=== PATIENT | male | born 1980 | race Caucasian/White ===

== ENCOUNTER 2018-09-25 09:45 | Outpatient (CLI) | payer OTHER, SELFPAY ==
[2017-07-24 07:50] VITALS: BMI 26.0
[2018-09-25 12:38] LABS: Cholesterol 187 mg/dL (200); High Density Lipoprotein 60 mg/dL; Triglycerides 109 mg/dL; Very Low Density Lipoprotein 22 mg/dL (5-40)
== END 2018-09-25 10:45 ==
LOC: LAB 09:49
PROVIDERS: Family Provider Family Medicine; PCP Family Medicine; Referring Provider Family Medicine; Visit Provider Family Medicine
DX: E78.5 Hyperlipidemia, unspecified (principal)
CPT/HCPCS: 36415; 80061

== ENCOUNTER → 2018-10-08 12:51 | Outpatient (CLI) | payer OTHER, SELFPAY ==
--- NOTE | 2018-10-08 12:53 | ECHOD_ITS ---
Reason For Study: Murmur Procedure This was a 2D Doppler, Color Flow transthoracic echocardiogram. Exam performed in department. Left Ventricle Normal LV size. Left ventricular systolic function is normal. The estimated ejection fraction is 60 %. Normal diastology for age. No regional wall motion abnormalities noted. Right Ventricle Normal RV size. Normal systolic function. Atria Normal left atrium. Normal right atrium. Mitral Valve Bileaflet diffuse mitral valve thickening. Moderate (2+) eccentric mitral valve insufficiency. Tricuspid Valve Normal tricuspid valve. Mild (1+) tricuspid valve insufficiency. Pulmonary artery systolic pressure is 26 mmHg. Aortic Valve Normal aortic valve. Pulmonic Valve Normal pulmonic valve. Great Vessels Normal aortic root. The pulmonary artery is normal size. Normal inferior vena cava. Pericardium/Pleural No pericardial effusion. MMode/2D Measurements & Calculations LVIDd: 5.9 cm IVSd: 0.79 cm Ao root diam: 3.1 cm LVIDs: 3.8 cm LVPWd: 0.86 cm RVDd: 3.2 cm FS: 36.8 % LAV(MOD-bp): 50.0 ml LVAd ap4: 25.0 cm2 SV(MOD-sp4): 38.8 ml LAV(MOD-bp) Indexed: 26.2 ml/m2 EDV(MOD-sp4): 64.1 ml LAV(MOD-sp2): 54.2 ml EDV(sp4-el): 67.8 ml LAV(MOD-sp4): 41.2 ml LVAs ap4: 14.1 cm2 ESV(MOD-sp4): 25.3 ml ESV(sp4-el): 26.2 ml EF(MOD-sp4): 60.5 % EF(sp4-el): 61.4 % SV(sp4-el): 41.7 ml LA A4 area: 15.9 cm2 LA dimension(2D): 3.8 cm RA A4 area: 12.0 cm2 Doppler Measurements & Calculations MV E max jordan: 106.7 cm/sec Lat Peak E' Jordan: 15.8 cm/sec Med Peak E' Jordan: 13.3 cm/sec MV A max jordan: 52.4 cm/sec E/E' lat: 6.7 E/E' med: 8.0 MV E/A: 2.0 Ao V2 max: 127.6 cm/sec LV V1 max: 124.2 cm/sec PA V2 max: 86.1 cm/sec Ao max P.5 mmHg LV V1 max P.2 mmHg Ao V2 mean: 92.4 cm/sec Ao mean P.8 mmHg Ao V2 VTI: 23.1 cm TR max jordan: 234.8 cm/sec TR max P.0 mmHg Interpretation Summary Normal LV size. Left ventricular systolic function is normal. The estimated ejection fraction is 60 %. Normal diastology for age. Moderate (2+) eccentric mitral valve insufficiency. Bileaflet diffuse mitral valve thickening. Ordering Physician: Agus Skelton Referring Physician: Agus Skelton Performed By: Merary Jennings, COLIN, RVT
--- OUTSIDE RECORDS SUMMARY | 2019-01-10 03:35 | XMS RPT_ITS ---
:1980 Author Organization [facility] Care Team Providers Name Role Phone Agus Skelton Attending Unavailable Agus Skelton Referring Unavailable Agus Skelton Primary Care Unavailable Avel Esquivel Attending Unavailable Agus Skelton Referring Unavailable Agus Skelton Attending Unavailable Agus Skelton Referring Unavailable Agus Skelton Primary Care Unavailable ASSESSMENT, HEALTH RISK Attending Unavailable ASSESSMENT, HEALTH RISK Referring Unavailable Agus Skelton Primary Care Unavailable PROBLEMS PROBLEMS DATE TYPE CONDITION / CODE ATTENDING STATUS SOURCE 10/30/2018 Unknown R01.1 - Cardiac Sierra, Avel Active James murmur, Community unspecified / Hospital R01.1(ICD-10) Repository 10/22/2018 Unknown E78.5 - Agus Skelton Active [place] Hyperlipidemia, Community unspecified / Hospital E78.5(ICD-10) Repository PROCEDURES PROCEDURES No Procedure Records FoundRESULTS RESULTS ECHOCARDIOGRAM COMPLETE Observed: 10/08/2018 Status: F Source: JAMES 4:42 PM [facility] REPOSITORY [facility] Cardiovascular Services [address] [place] [address] Echo Complete 10/08/18 1259 MR#: [id number] Acct: [id number] Name: SUNNY CHEN Rep #: [id number] : 1980 38 From: Avel Esquivel MD Attending Dr: Agus Skelton MD Status: REG CLI Ordering Dr: Agus Skelton MD Date: 10/08/18 Location: [facility] Sex: M C Admitted: Reason For Study: Murmur Procedure This was a 2D Doppler, Color Flow transthoracic echocardiogram. Exam performed in department. Left Ventricle Normal LV size. Left ventricular systolic function is normal. The estimated ejection fraction is 60 %. Normal diastology for age. No regional wall motion abnormalities noted. Right Ventricle Normal RV size. Normal systolic function. Atria Normal left atrium. Normal right atrium. Mitral Valve Bileaflet diffuse mitral valve thickening. Moderate (2+) eccentric mitral valve insufficiency. Tricuspid Valve Normal tricuspid valve. Mild (1+) tricuspid valve insufficiency. Pulmonary artery systolic pressure is 26 mmHg. Aortic Valve Normal aortic valve. Pulmonic Valve Normal pulmonic valve. Great Vessels Normal aortic root. The pulmonary artery is normal size. Normal inferior vena cava. Pericardium/Pleural No pericardial effusion. MMode/2D Measurements AND Calculations LVIDd: 5.9 cm IVSd: 0.79 cm Ao root diam: 3.1 cm LVIDs: 3.8 cm LVPWd: 0.86 cm RVDd: 3.2 cm FS: 36.8 % LAV(MOD-bp): 50.0 ml LVAd ap4: 25.0 cm2 SV(MOD-sp4): 38.8 ml LAV(MOD-bp) Indexed: 26.2 ml/m2 EDV(MOD-sp4): 64.1 ml LAV(MOD-sp2): 54.2 ml EDV(sp4-el): 67.8 ml LAV(MOD-sp4): 41.2 ml LVAs ap4: 14.1 cm2 ESV(MOD-sp4): 25.3 ml ESV(sp4-el): 26.2 ml EF(MOD-sp4): 60.5 % EF(sp4-el): 61.4 % SV(sp4-el): 41.7 ml LA A4 area: 15.9 cm2 LA dimension(2D): 3.8 cm RA A4 area: 12.0 cm2 Doppler Measurements AND Calculations MV E max jordan: 106.7 cm/sec Lat Peak E' Jordan: 15.8 cm/sec Med Peak E' Jordan: 13.3 cm/sec MV A max jordan: 52.4 cm/sec E/E' lat: 6.7 E/E' med: 8.0 MV E/A: 2.0 Ao V2 max: 127.6 cm/sec LV V1 max: 124.2 cm/sec PA V2 max: 86.1 cm/sec Ao max P.5 mmHg LV V1 max P.2 mmHg Ao V2 mean: 92.4 cm/sec Ao mean P.8 mmHg Ao V2 VTI: 23.1 cm TR max jordan: 234.8 cm/sec TR max P.0 mmHg Interpretation Summary Normal LV size. Left ventricular systolic function is normal. The estimated ejection fraction is 60 %. Normal diastology for age. Moderate (2+) eccentric mitral valve insufficiency. Bileaflet diffuse mitral valve thickening. Ordering Physician: Agus Skelton Referring Physician: Agus Skelton Performed By: Merary Jennings, RDLEX, RVT 10/08/181641 Date Avel Esquivel MD CC: Agus Skelton MD Date Dictated: 10/08/18 1259 Date Transcribed: 10/08/181641 Industry Consultant: Signed LIPID PROFILE Collected: 09/25/2018 Status: F Source: JAMES 12:04 PM [facility] REPOSITORY TYPE CODE TESTS RESULT OUT OF RANGE REFERENCE UNITS LAB L501.4900 200 mg/dL Normal CHOL 187 Result Comment: <200 mg/dL Desirable 200-240 mg/dL Borderline >240 mg/dL High Risk LAB L501.5000 mg/dL Normal TRIG 109 Result Comment: The drugs N-Acetylcysteine and Metamizole may falsely depress this assay. Serum Triglycerides Reference Interval Normal <150 mg/dL Borderline high 150 - 199 mg/dL High 200 - 499 mg/dL Very High > or = 500 mg/dL LAB L501.6400 mg/dL Normal HDL 60 Result Comment: The drugs N-Acetylcysteine and Metamizole may falsely depress this assay. Reference Range HDL <40 mg/dL Low HDL Cholesterol HDL >or= 60 mg/dL High HDL Cholesterol LAB L501.6500 0-130 mg/dL Normal LDL 105 LAB L501.6600 5-40 mg/dL Normal VLDL 22 Performed By: #### L500.4100 #### [facility] [address] [place], [place], [address] NICOTINE URINE DRUG Collected: 06/22/2018 Status: F Source: JAMES SCREEN 4:30 PM [facility] REPOSITORY TYPE CODE TESTS RESULT OUT OF RANGE REFERENCE UNITS LAB L505.6250 TO BE Normal CONFIRMED Result Comment: CONFIRMATORY TESTING FOR ALL POSITIVE URINE DRUG SCREEN RESULTS WILL ONLY BE SENT OUT UPON PHYSICIAN ORDER. The results of Urine Drug Screen methods provide only preliminary analytical test results. A more specific alternate chemical method must be used in order to obtain a confirmed analytical result. Gas chromatography/mass spectrometery (GC/MS) is the preferred confirmatory method. Clinical consideration and professional judgement should be applied to any drug of abuse test result, particularly when preliminary positive results are used. LAB L505.6270 <200 ng/mL Normal COT DRG Negative SCREEN Result Comment: Cotinine is the first-stage metabolite of Nicotine. Performed By: #### L505.6240 #### [facility] [address] [place], [address] CBC, EMPLOYEE Collected: 06/22/2018 Status: F Source: JAMES 4:30 PM [facility] REPOSITORY TYPE CODE TESTS RESULT OUT OF RANGE REFERENCE UNITS LAB L100.1000 4.4-11.0 K/mm3 Normal WBC 7.3 LAB L100.1200 4.6-6.2 M/mm3 Normal RBC 4.78 LAB L100.1300 13.0-16.5 g/dl Normal HGB 15.3 LAB L100.1400 40-54 % Normal HCT 43.1 LAB L100.1500 80-94 fL Normal MCV 90.2 LAB L100.1600 27.0-32.0 pg Normal MCH 32.0 LAB L100.1700 32-36 g/gl Normal MCHC 35.5 LAB L100.1810 11.6-14.6 % Normal RDW CV 13.4 LAB L100.1820 35.1-43.9 fl High RDW SD 44.0 LAB L100.1900 150-450 K/mm3 Normal PLT 353 LAB L100.2000 6.2-12.0 fl Normal MPV 9.0 LAB L100.2110 47-70 % Normal NEUT% 57.9 LAB L100.2210 19-41 % Normal LY% 28.8 LAB L100.2310 0-10 % Normal MONO% 9.8 LAB L100.2410 0-5 % Normal EO% 2.6 LAB L100.2510 0-1 % Normal BASO% 0.6 LAB L100.2620 2.0-7.7 X10 3/uL Normal Absolute Neut 4.2 LAB L100.2720 0.83-4.51 X10 3/ul Normal Absolute Lymph 2.09 Performed By: #### L100.0200 #### [facility] [address] [place] [address]. [place], [place], [address] EMPLOYEE PROFILE Collected: 06/22/2018 Status: F Source: CERRILL[place] 4:30 PM [facility] REPOSITORY TYPE CODE TESTS RESULT OUT OF RANGE REFERENCE UNITS LAB L501.0100 74-106 mg/dL Normal GLU 88 Result Comment: Please note revised GLUCOSE reference range effective 2017. LAB L501.1000 7-18 mg/dL Normal BUN 13 LAB L501.1100 0.70-1.30 mg/dL Normal CREAT,SERUM 1.27 Result Comment: The validity of the calculated GFR AND GFRAA in patients over 70 years has not been determined. Clinical correlation is essential. LAB L501.1110 >60 mL/min Normal EST GFR 67 Result Comment: Non- GFR Calc LAB L501.1115 >60 mL/min Normal EST GFR - AA 81 Result Comment: GFR Calc LAB L501.1300 10-20 RATIO Normal BUN/CRE 10.2 LAB L501.1400 3.5-7.2 mg/dL Normal URIC 6.5 Result Comment: The drugs N-Acetylcysteine and Metamizole may falsely depress this assay. LAB L501.1500 6.4-8.2 g/dL Normal T PROT 7.8 LAB L501.1800 3.2-5.0 g/dL Normal ALB 4.1 LAB L501.1950 2.2-4.2 g/dL Normal GLOB 3.7 LAB L501.2000 0.9-2.4 RATIO Normal A/G 1.1 LAB L501.2200 8.5-10.1 mg/dL Normal CA 8.8 LAB L501.2300 2.5-4.9 mg/dL Normal PHOS 2.8 LAB L501.4100 15-37 U/L Normal AST 26 LAB L501.4305 45-117 U/L Normal ALK P 73 LAB L501.4405 16-61 U/L Normal ALT 45 LAB L501.4600 0.20-1.00 mg/dL High T BILI 1.30 LAB L501.4700 0.00-0.30 mg/dL Normal D BILI 0.24 LAB L501.4900 200 mg/dL High CHOL 237 Result Comment: <200 mg/dL Desirable 200-240 mg/dL Borderline >240 mg/dL High Risk LAB L501.5000 mg/dL Normal TRIG 136 Result Comment: The drugs N-Acetylcysteine and Metamizole may falsely depress this assay. Serum Triglycerides Reference Interval Normal <150 mg/dL Borderline high 150 - 199 mg/dL High 200 - 499 mg/dL Very High > or = 500 mg/dL LAB L501.5300 136-145 mmol/L Normal NA 137 LAB L501.5600 3.5-5.1 mmol/L Normal K 3.9 LAB L501.5900 98-107 mmol/L Normal CL 101 LAB L501.6100 21.0-32.0 mmol/L Normal CO2 27.0 LAB L501.6200 5-15 Normal 9 GAP LAB L501.6400 mg/dL Normal HDL 55 Result Comment: The drugs N-Acetylcysteine and Metamizole may falsely depress this assay. Reference Range HDL <40 mg/dL Low HDL Cholesterol HDL >or= 60 mg/dL High HDL Cholesterol LAB L501.6475 Normal CHOL:HDL 4.30 LAB L501.6500 0-130 mg/dL High LDL 155 LAB L501.6600 5-40 mg/dL Normal VLDL 27 LAB L504.2610 87-241 U/L Normal LDH 227 Performed By: #### L500.2900 #### [facility] [address] [place], [address] URINALYSIS, EMPLOYEE Collected: 06/22/2018 Status: F Source: CERRI[place] 4:30 PM [facility] REPOSITORY TYPE CODE TESTS RESULT OUT OF RANGE REFERENCE UNITS LAB L400.3000 Yellow COLOR Normal Yellow LAB L400.3050 Clear Normal CLARITY Clear LAB L400.3200 Normal mg/dl Normal GLUCOSE, UR Normal LAB L400.3300 Negative mg/dL Normal BILIRUBIN URINE Negative LAB L400.3400 Negative mg/dl Normal KETONE UR Negative LAB L400.3465 1.002-1.030 Normal SP.GR. DIPSTX 1.010 LAB L400.3550 5.0 - 8.0 pH UR Normal 6.5 LAB L400.3600 Negative mg/dl PROT Normal DIPSTX Negative LAB L400.3700 Normal mg/dl Normal UROBILI Normal LAB L400.3750 Negative Normal NITRITE UR Negative LAB L400.3780 Negative /ul Normal OCCULT BLOOD-UR Negative LAB L400.3800 Negative /ul LEUK Normal ESTERASE Negative Performed By: #### L400.0100 #### [facility] [address] [place], [address] ALLERGIES ALLERGIES DATE TYPE / CODE NAME / CODE REACTION SEVERITY SOURCE 07/18/2017 Drug No Known Unknown [facility] Allergy/4160 Allergies/F00 Hospital [address]402(SNOMED [id number](RXNOR Repository CT) M) ENCOUNTERS ENCOUNTERS ADMIT/DISCHARGE ACCOUNT ADMITTING ENCOUNTER LOCATION SOURCE NUMBER CLASS 10/08/2018 [id number] Ambulatory BMSBuilding:Marcie Santoyo 3 [facility] Repository 10/08/2018 [id number] Ambulatory [place] 5 [facility] ing:[facility] Repository 09/25/2018/ [id number] Ambulatory James [place] 8 5 [facility] ing:LAB Repository 06/22/2018 [id number] Ambulatory James [place] 5 [facility] ing:EMPH Repository PAYERS PAYERS ENCOUNTER GUARANTOR PAYER SUBSCRIBER SOURCE 10/08/2018 SUNNY Powell Primary Insurance:[employer] SUNNY Powell James [id number] [facility] J[facility]NSONDOB: [address] [id number] [address]Dpj: Number: Repository [id number] (HP) Date:[id number] [address] [address], [place] [address]QX: CHECK WEBSITE 10/08/2018 Secondary NOT GIVENUNK James Insurance:SELF PAY [facility] Number: Effective Repository Date:2018-10-08 10/08/2018 SUNNY Powell Primary Insurance:[employer] SUNNY [id number] OP3Nvoice [facility] JOHNSONDOB: [address] [id number] [address]Xfq: Number: Repository [id number] (HP) Date:[id number] [address] [address]OW[place], [place] [address]MF: CHECK WEBSITE 10/08/2018 Secondary NOT GIVENUNK [place] Insurance:SELF PAY [facility] Number: Effective Repository Date:2018-09-27 09/25/2018 SUNNY Powell Primary Insurance:[employer] SUNNY [id number] [facility] JOHNSONDOB: [address] [id number] [facility] [address]Cpy: Number: Repository [id number] (HP) Date:[id number] [address] [address], [place] [address]YF: CHECK WEBSITE 09/25/2018 Secondary NOT GIVENUNK James Insurance:SELF PAY [facility] Number: Effective Repository Date:2018-09-25 06/22/2018 Sunny Becker NOT SILIVNO [id number] Tr Insurance:SELF PAY [address] [address]Yup: Number: [facility] Repository Date:2018-06-22 ()
== END ==
PROVIDERS: Family Provider Family Medicine; PCP Family Medicine; Referring Provider Family Medicine; Visit Provider Family Medicine
DX: R01.1 Cardiac murmur, unspecified (principal)
CPT/HCPCS: 93306

== ENCOUNTER → 2019-02-27 22:56 | Outpatient (CLI) | payer OTHER, SELFPAY ==
[2019-02-06 14:37] VITALS: BMI 26.6
== END ==
PROVIDERS: Family Provider Family Medicine; PCP Family Medicine; Referring Provider Family Medicine; Visit Provider Family Medicine
DX: G47.33 Obstructive sleep apnea (adult) (pediatric) (principal)
CPT/HCPCS: 95811

== ENCOUNTER → 2019-09-03 09:21 | Outpatient (CLI) | payer OTHER, SELFPAY ==
[2019-02-06 14:37] VITALS: BMI 26.6
[2019-09-03 10:41] LABS: AST(SGOT) 23 U/L (15-37); Alanine Aminotransfer ALT/SGPT 38 U/L (16-61); Albumin, Serum 4.1 g/dL (3.2-5.0); Alkaline Phosphatase 68 U/L (45-117); Bilirubin, Direct 0.26 mg/dL (0.00-0.30); Cholesterol 204 mg/dL (200); Globulin 3.4 g/dL (2.2-4.2); High Density Lipoprotein 56 mg/dL; Protein, Total 7.5 g/dL (6.4-8.2); Triglycerides 95 mg/dL; Very Low Density Lipoprotein 19 mg/dL (5-40)
== END ==
PROVIDERS: Family Provider Family Medicine; PCP Family Medicine; Referring Provider Family Medicine; Visit Provider Family Medicine
DX: E78.5 Hyperlipidemia, unspecified (principal)
CPT/HCPCS: 36415; 80061; 80076

== ENCOUNTER 2020-07-20 18:17 | Outpatient (RCR) | payer OTHER, SELFPAY ==
[2020-02-03 14:32] VITALS: BMI 26.6
== END 2020-07-22 23:59 ==
LOC: EMPH 18:17
PROVIDERS: PCP Family Medicine; Visit Provider Family Medicine Geriatric Medicine
DX: Z11.59 Encounter for screening for other viral diseases (principal)
CPT/HCPCS: 87635; U0003

== ENCOUNTER 2020-08-20 08:27 | Outpatient (RCR) | payer OTHER, SELFPAY ==
[2020-02-03 14:32] VITALS: BMI 26.6
== END 2020-08-22 23:59 ==
LOC: EMPH 08:27
PROVIDERS: PCP Family Medicine; Visit Provider Family Medicine Geriatric Medicine
DX: Z03.818 Encounter for observation for suspected exposure to other biological agents ruled out (principal)
CPT/HCPCS: 87426

== ENCOUNTER 2020-09-15 11:46 | Outpatient (RCR) | payer OTHER, SELFPAY ==
[2020-02-03 14:32] VITALS: BMI 26.6
[2020-09-03 23:51] LABS: Probe Check PASS; Specimen Processing Control PASS
== END 2020-09-21 23:59 ==
LOC: EMPH 11:46
PROVIDERS: PCP Family Medicine; Visit Provider Family Medicine Geriatric Medicine
DX: Z03.818 Encounter for observation for suspected exposure to other biological agents ruled out (principal)
CPT/HCPCS: 87426; 87635; U0002

== ENCOUNTER 2020-10-21 14:06 | Outpatient (RCR) | payer OTHER, SELFPAY ==
[2020-02-03 14:32] VITALS: BMI 26.6
== END 2020-10-22 23:59 ==
LOC: EMPH 14:06
PROVIDERS: PCP Family Medicine; Referring Provider Family Medicine Geriatric Medicine; Visit Provider Family Medicine Geriatric Medicine
DX: Z03.818 Encounter for observation for suspected exposure to other biological agents ruled out (principal)
CPT/HCPCS: 87426

== ENCOUNTER 2020-11-04 13:02 | Outpatient (RCR) | payer OTHER, SELFPAY ==
[2020-02-03 14:32] VITALS: BMI 26.6
== END 2020-11-22 23:59 ==
LOC: EMPH 13:02
PROVIDERS: PCP Family Medicine; Referring Provider Family Medicine Geriatric Medicine; Visit Provider Family Medicine Geriatric Medicine
DX: Z03.818 Encounter for observation for suspected exposure to other biological agents ruled out (principal)
CPT/HCPCS: 87426

== ENCOUNTER 2020-12-09 12:53 | Outpatient (RCR) | payer OTHER, SELFPAY ==
[2020-02-03 14:32] VITALS: BMI 26.6
== END 2020-12-20 23:59 ==
LOC: EMPH 12:53
PROVIDERS: PCP Family Medicine; Referring Provider Family Medicine Geriatric Medicine; Visit Provider Family Medicine Geriatric Medicine
DX: Z03.818 Encounter for observation for suspected exposure to other biological agents ruled out (principal)
CPT/HCPCS: 87426

== ENCOUNTER → 2020-12-10 13:58 | Outpatient (CLI) | payer OTHER, SELFPAY ==
[2020-02-03 14:32] VITALS: BMI 26.6
--- NOTE | 2020-12-10 14:00 | ECHOD_ITS ---
Reason For Study: MVP Procedure This was a 2D Doppler, Color Flow transthoracic echocardiogram. Exam performed in department. Left Ventricle Normal LV size. Mid cavitary false tendon noted. Left ventricular systolic function is normal. The estimated ejection fraction is 60 %. No regional wall motion abnormalities noted. Right Ventricle Normal RV size. Normal systolic function. Atria Normal left atrium. Normal right atrium. Mitral Valve Posterior leaflet mitral valve prolapse. Moderately severe (3+) anteriorly directed mitral valve insufficiency. Tricuspid Valve Normal tricuspid valve. Mild (1+) tricuspid valve insufficiency. Pulmonary artery systolic pressure is 23 mmHg. Aortic Valve Trisinus/trileaflet aortic valve. Pulmonic Valve Normal pulmonic valve. Great Vessels Normal aortic root. The pulmonary artery is normal size. Normal inferior vena cava. Pericardium/Pleural No pericardial effusion. MMode/2D Measurements & Calculations LVIDd: 5.5 cm IVSd: 0.74 cm Ao root diam: 3.2 cm LVIDs: 3.3 cm LVPWd: 0.88 cm RVDd: 3.2 cm FS: 39.6 % LAV(MOD-bp): 55.7 ml EDV(MOD-sp4): 107.6 ml EDV(MOD-sp2): 120.7 ml LAV(MOD-bp) Indexed: 28.9 ml/m2 ESV(MOD-sp4): 35.3 ml EF(MOD-sp2): 72.7 % LAV(MOD-sp2): 63.2 ml EF(MOD-sp4): 67.2 % LAV(MOD-sp4): 42.9 ml SV(MOD-sp4): 72.3 ml SV(MOD-sp2): 87.8 ml LA A4 area: 16.2 cm2 LA dimension(2D): 4.0 cm RA A4 area: 11.9 cm2 Doppler Measurements & Calculations MV E max jordan: 140.3 cm/sec Lat Peak E' Jordan: 16.6 cm/sec Med Peak E' Jordan: 13.4 cm/sec MV A max jordan: 32.9 cm/sec E/E' lat: 8.4 E/E' med: 10.4 MV E/A: 4.3 Ao V2 max: 144.8 cm/sec LV V1 max: 108.6 cm/sec PA V2 max: 77.6 cm/sec Ao max P.4 mmHg LV V1 max P.7 mmHg TR max jordan: 222.7 cm/sec TR max P.9 mmHg Interpretation Summary Normal LV size. Mid cavitary false tendon noted. Left ventricular systolic function is normal. The estimated ejection fraction is 60 %. Pulmonary artery systolic pressure is 23 mmHg. Moderately severe (3+) anteriorly directed mitral valve insufficiency. Posterior leaflet mitral valve prolapse. The global longitudinal strain is normal. The global longitudinal strain = -21.3 % (normal). Ordering Physician: Avel Esquivel Referring Physician: Agus Skelton Performed By: Breana Morrison RDCS
== END ==
PROVIDERS: PCP Family Medicine; Referring Provider Internal Medicine Cardiovascular Disease; Visit Provider Internal Medicine Cardiovascular Disease
DX: R00.2 Palpitations (principal); I34.0 Nonrheumatic mitral (valve) insufficiency
CPT/HCPCS: 93306

== ENCOUNTER → 2020-12-18 15:43 | Outpatient (CLI) | payer OTHER, SELFPAY ==
[2020-12-18 14:53] VITALS: BMI 26.4
--- NOTE | 2020-12-18 15:46 | RAD_ITS ---
STUDY: X-RAY CHEST REASON FOR EXAM: Male, 40 years old. MR TECHNIQUE: 2 views COMPARISON: None. FINDINGS: The lungs are clear and expanded. There is no demonstrated pleural abnormality. Normal size heart. Normal mediastinum and jayshree. Normal visualized pulmonary arteries. Normal visualized aortic arch and descending thoracic aorta. There is straightening of the normal kyphosis of the thoracic spine. Normal visualized ribs, clavicles, and shoulders. There is no demonstrated abnormality of the visualized soft tissue structures of the upper abdomen. RAD/Chest PA and Lateral IMPRESSION: Normal x-ray examination of the chest. Electronically Signed: Fela Yu MD at 16:09 EST , Service support ,
[2020-12-18 16:52] LABS: Absolute Lymphocyte Count 1.94 X10^3/uL (0.83-4.51); Absolute Neutrophil Count 3.7 X10^3/uL (2.0-7.7); Basophil# 0.06 X10^3/uL; Basophil% 0.9 % (0-1); Eosinophil# 0.15 X10^3/uL; Eosinophils% 2.3 % (0-5); Hemoglobin 14.7 g/dL (13.0-16.5); Lymphocyte # 1.94 X10^3/ul (4.0); Mean Corp Hgb Conc 32.7 g/dL (32-36); Mean Corpuscular Hgb 30.1 pg (27.0-32.0); Mean Platelet Vol. 9.1 fl (6.2-12.0); Monocyte# 0.65 X10^3/uL; NRBC Flagged by Analyzer 0 % (0-5); Neutrophil # 3.65 X10^3/uL (2.7-7.7); Neutrophil % 56.5 % (47-70); Platelet Count 382 K/mm3 (150-450); RBC Distribution Width CV 12.8 % (11.6-14.6); RBC Distribution Width SD 43.6 fl (35.1-43.9); Red Blood Count 4.89 M/mm3 (4.6-6.2); White Blood Count 6.5 K/mm3 (4.4-11.0)
[2020-12-18 17:16] LABS: Anion Gap 5 (5-15); BNP,B-Type NATRIURETIC PEPTIDE 12.7 pg/mL (0-100); BUN 16 mg/dL (7-18); BUN/Creat Ratio 12.9 RATIO (10-20); Chloride 105 mmol/L (98-107); Creatinine, Serum 1.24 mg/dL (0.70-1.30); EST Glomerular Filtration Rate 68 mL/min (>60); Est Glom Filt Rate - Afr Amer 82 mL/min (>60); Glucose 87 mg/dL (74-106); Potassium 4.2 mmol/L (3.5-5.1); Sodium Level 139 mmol/L (136-145)
== END ==
PROVIDERS: PCP Family Medicine; Referring Provider Internal Medicine Cardiovascular Disease; Visit Provider Internal Medicine Cardiovascular Disease
DX: I34.1 Nonrheumatic mitral (valve) prolapse (principal)
CPT/HCPCS: 36415; 71046; 80048; 83880; 85025

== ENCOUNTER 2021-01-07 06:48 | Day surgery (SDC) | payer OTHER, SELFPAY ==
[2020-12-18 14:53] VITALS: BMI 26.4
[2021-01-06 13:07] VITALS: BMI 26.4
--- NOTE | 2021-01-07 07:00 | HP_ITS ---
[facility] History of Present Illness Details: 40-year-old gentleman with a history of mitral regurgitation who was evaluated at his last visit in January 2020. He was noted to be doing well and then was scheduled for a routine echocardiographic evaluation to assess his mitral valve. He is denied any chest pain or shortness of breath or paroxysmal nocturnal dyspnea or pedal edema he has had a mild chronic cough. His echocardiogram demonstrated preserved ejection fraction with normal internal dimensions. He had posterior leaflet mitral valve prolapse with moderately severe 3+ anteriorly directed mitral regurgitation. Pulmonary systolic pressures were noted to be 23 mmHg. His physical exam is significant for his holosystolic murmur noted at the apex. His EKG today demonstrates normal sinus rhythm with a rate of 65 bpm and no acute changes. Intake Vital Signs 12/18/20 Height 5 ft 8 in 12/18/20 Weight: 174 lb 12/18/20 BMI 26.4 12/18/20 BP 137/81 H 12/18/20 Respiration 16 12/18/20 Pulse 74 12/18/20 Pulse Oximetry (%) 98 Intake Visit Reasons: Mitral Insuf Allergies No Known Allergies Allergy (Verified 12/18/20 14:52) Medications NK 02/03/20 [History Confirmed 12/18/20] Ejection fraction %: 60 to 64 [facility] Medical History Hyperlipidemia (Chronic) Nonrheumatic mitral (valve) insufficiency (Chronic) Nonrheumatic mitral (valve) prolapse (Chronic) Depression (Chronic) Obstructive sleep apnea (Chronic) Surgical History History of adenoidectomy (Resolved) History of left inguinal hernia repair (Resolved 07/2017) History of repair of rotator cuff (Resolved) History of umbilical hernia repair (Resolved 07/2017) Family History Grandfather CAD (coronary artery disease) maternal Grandmother CAD (coronary artery disease) maternal Grandmother Heart disease paternal CHB PPM Social History (Updated 12/18/20 @ 15:[address] Avle Esquivel MD) Smoking Status: Former smoker alcohol intake: current alcohol intake frequency: a few times a week Alcohol type: beer caffeine: Yes Type: coffee Number of servings: 3 ROS Const Const: Negative for fatigue, weakness, headache(s), frequent falls, difficulty sleeping or excessive sweating Eyes Eyes: Negative for loss of peripheral vision, transient loss of vision, blurry vision, double vision or tunnel vision ENT ENT: Negative for headache(s), dizziness, Nosebleed/epistaxis or balance problems Cardio Chest Pain: No Palpitations: No Edema: None Muscle aches with walking: None Resp Respiratory: Positive for Cough (chronic); negative for SOB with activity, SOB at rest, SOB orthopnea\SOB lying down or paroxysmal nocturnal dyspnea Additional Details: BI-PAP GI GI: Negative nausea, vomiting, heartburn or black,tarry stools : Negative for hematuria Musc Musc: Negative for muscle aches/ myalgia, muscle weakness, joint pain or balance problems Skin Skin: Negative non-healing lesions, rash or unusual bruising Neuro Neuro: Negative for dizziness, lightheadedness, near syncope, syncope, orthostatic symptoms, frequent falls, headache(s), weakness, blurry vision, double vision or lack of coordination Cuong Hematologic/Lymphatic: Negative for easy bleeding or easy bruising Endo Endo: Negative for fatigue, excessive sweating or increased thirst/drinking Psych Psych: Negative for anxiety or depression Allergy Allergy/Immunology: Negative for hives, Negative for rash Cardiology Exam Const Appearance: cooperative, healthy appearing, no acute distress, well developed and well groomed Nutritional Appearance: average body habitus and well nourished Orientation: alert, awake and oriented x3 Head Head: normal to inspection, normocephalic and atraumatic Ears: hearing grossly normal bilaterally and external ears normal Nose: external nose normal, nares normal, nasal mucous membranes and turbinates normal, septum normal, no nasal discharge Face and Sinus: face symmetric Mouth: oral mucosae normal, tongue normal, oropharynx normal and moist mucous membranes Teeth and gingiva: dentition normal Throat: posterior oropharynx normal, tonsils normal and uvula midline Eyes General: appearance normal, both eyes and all related structures Eyelids: eyelids normal Conjunctivae: conjunctivae normal Pupils: PERRL, normal by confrontation and accommodation normal EOM: EOM intact bilaterally Neck Neck: normal visual inspection, trachea midline and no JVD JVD: +5 Carotids: normal carotid upstroke and bounding pulses Chest Chest inspection: normal inspection of the chest, symmetric chest movement and normal respiratory effort Auscultation: Bilateral: Clear to Auscultation Cardio Palpation: normal PMI Rate: regular rate Rhythm: regular rhythm Heart sounds: S1 normal, S2 normal and normal, physiologic split S2; negative rub, gallop or murmur Murmur: Grade 3/6, harsh, holosystolic and apex GI GI: normal to inspection, soft, no hepatosplenomegaly and bowel sounds present Neuro General: alert, awake, oriented x3, gait normal, moves all extremities and no focal sensory deficit Skin Skin: no rashes or lesions noted Extremities Pulses: Normal: Right Femoral Pulse, Left Femoral Pulse, Right Dorsalis Pedis Pulse, Left Dorsalis Pedis Pulse, Right Posterior Tibial Pulse, Left Posterior Tibial Pulse, Right Radial Pulse, Left Radial Pulse Lower Extremity Edema: None: Bilateral Musculoskel Musculoskeletal: No joint tenderness Psych Psychological: normal affect Assessment & Plan Problems 1. Nonrheumatic mitral (valve) prolapse I34.1 Plan He appears to have mitral valve prolapse with at least 3+ mitral regurgitation. Though he is minimally symptomatic I think that he should be considered for early mitral valve repair. He is at the cusp of age that I think that we need to perform a cardiac catheterization to assess his coronary anatomy and then refer him to the cardiac surgeon for evaluation of the above. Any dental work that needs to be done should be accomplished. I have discussed the above with him, the risk benefits alternatives and he agrees to proceed. 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
--- NOTE | 2021-01-07 08:40 | CL.D_ITS ---
Patient Name: SUNNY CHEN Study Date: 01/07/2021 Performing: Avel Esquivel MD Ht: 68.11 inches 173 cm : 1980 Wt: 174.17 lbs 79 kg Age: 40 Gender: male BSA: 1.93 PROCEDURE(S) PERFORMED AS90-XFW/COR/LV CLINICAL PROFILE AND INDICATIONS Indications: Valvular Disease Heart Failure: None Stress/Imaging Stress/Image Study Performed: No CAD Presentations: No Sxs, no angina. No Sxs, no angina. CONCLUSIONS Minimal coronary artery disease. Preserved left ventricular systolic function. Grade 3-4 mitral reg urgitation with mitral valve prolapse. RECOMMENDATIONS Surgery consult for Valve Replacement surgery DESCRIPTION OF PROCEDURE The patient arrived to the procedure lab. The risks and benefits of the procedure as well as a full d escription of our services here and current unavailability of surgical backup were fully explained to the patient and/or their significant other prior to the catheterization. The Timeout was completed, verifying the correct patient and procedure. The patient's procedural site was prepped and draped in the usual fashion. Local anesthetic was given subcutaneously to right radial region with Lidocaine 2% . Using a modified Seldinger technique, arterial access was obtained via the right radial artery, a 6 Fr sheath was inserted. Right Coronary Artery selective angiography was then performed in multiple v iews using a 5 Fr. 4.0 [place] catheter. Left Coronary Artery selective angiography was performed in mu ltiple views using a 5 Fr. 4.0 [place] catheter. Left Ventriculography was performed in LUDWIG projection using a 5 Fr. Pigtail catheter. LV to AO pullback pressures were then recorded.The arterial sheath was pulled and a TR Band was applied for hemostasis CORONARY ANGIOGRAPHY DOMINANCE: Right Dominant LEFT HEART ASSESSMENT Left Ventricular Ejection Fraction: by LV Gram 60 % Normal LV wall motion Normal Left Ventricular systolic function LEFT MAIN: Angiographically normal LEFT ANTERIOR DESCENDING ARTERY: No significant disease noted CIRCUMFLEX ARTERY: No significant disease noted RIGHT CORONARY ARTERY: No significant disease noted VALVE FINDINGS: Mitral Valve Prolapse Severe Mitral Valve Insufficiency - Grade 4 COMPLICATIONS No Complications PROCEDURE MEDICATIONS Versed 1 mg IV Fentanyl 50 mcg IV Versed 1 mg IV Oxygen: 2 L/min via nasal cannula Baby Aspirin (81mg) 1 Tabs PO @ 01/07/2021 07:07:57 Heparin given IA 01/07/2021 08:15:16 Verapamil 2.5mg, Ntg 100mcgs, 2000 units of Heparin given IA 01/07/2021 08:15:16 SUMMARY OF HEMODYNAMIC DATA Time AIR REST ECG 07:05:08 AO 95/69 (82) SA 08:19:04 LV 86/4, 12 08:24:49 LV 89/10, 12 08:24:56 LV 89/13, 14 08:26:37 LV 86/12, 13 08:26:44 LVp 97/12, 14 08:27:11 AOp 99/69 (83) 08:27:16 Signed By Avel Esquivel MD On 01/07/2021 08:40:05 Avel Esquivel MD
== END 2021-01-07 10:00 | disposition home or self-care (01) ==
LOC: CLSP 06:49
PROVIDERS: PCP Family Medicine; Visit Provider Internal Medicine Cardiovascular Disease
DX: I34.1 Nonrheumatic mitral (valve) prolapse (principal); R01.1 Cardiac murmur, unspecified; E78.5 Hyperlipidemia, unspecified; G47.33 Obstructive sleep apnea (adult) (pediatric); Z79.82 Long term (current) use of aspirin; Z87.891 Personal history of nicotine dependence; I25.10 Atherosclerotic heart disease of native coronary artery without angina pectoris; Z82.49 Family history of ischemic heart disease and other diseases of the circulatory system
CPT/HCPCS: 93458; 99152; 99153; J7040; Q9967; C1769; C1894

== ENCOUNTER 2021-01-11 08:33 | Outpatient (RCR) | payer OTHER, SELFPAY ==
[2020-12-18 14:53] VITALS: BMI 26.4
[2021-01-06 13:07] VITALS: BMI 26.4
== END 2021-01-20 23:59 ==
LOC: EMPH 08:33
PROVIDERS: PCP Family Medicine; Referring Provider Family Medicine Geriatric Medicine; Visit Provider Family Medicine Geriatric Medicine
DX: Z03.818 Encounter for observation for suspected exposure to other biological agents ruled out (principal)
CPT/HCPCS: 87426

== ENCOUNTER 2021-03-02 07:09 | Outpatient (RCR) | payer OTHER, SELFPAY ==
[2021-01-06 13:07] VITALS: BMI 26.4
== END 2021-03-22 23:59 ==
LOC: EMPH 07:09
PROVIDERS: PCP Family Medicine; Referring Provider Family Medicine Geriatric Medicine; Visit Provider Family Medicine Geriatric Medicine
DX: Z03.818 Encounter for observation for suspected exposure to other biological agents ruled out (principal)
CPT/HCPCS: 87426

== ENCOUNTER → 2021-03-24 10:09 | Outpatient (CLI) | payer OTHER, SELFPAY ==
[2021-01-06 13:07] VITALS: BMI 26.4
--- NOTE | 2021-03-24 10:37 | RAD_ITS ---
STUDY: X-RAY CHEST REASON FOR EXAM: Male, 40 years old. Heart surgery TECHNIQUE: PA and lateral views of the chest. COMPARISON: Comparison is made with prior study dated 12/18/2020. FINDINGS: Hyperinflation. The lungs are clear. There is no demonstrated pleural abnormality. The patient is status post mitral valve replacement. Normal mediastinum and jayshree. Normal visualized pulmonary arteries. Normal visualized aortic arch and descending thoracic aorta. Normal visualized thoracic spine. Normal visualized ribs, clavicles, and shoulders. There is no demonstrated abnormality of the visualized soft tissue structures of the upper abdomen. RAD/Chest PA and Lateral IMPRESSION: Hyperinflation. The lungs are clear. Status post mitral valve replacement. Electronically Signed: Ge Oro MD at 10:46 EDT , Service support ,
[2021-03-24 12:01] LABS: Absolute Lymphocyte Count 1.85 X10^3/uL (0.83-4.51); Absolute Neutrophil Count 5.9 X10^3/uL (2.0-7.7); Basophil% 1.1 % (0-1); Eosinophil# 0.33 X10^3/uL; Eosinophils% 3.7 % (0-5); Hematocrit 41.7 % (40-54); Hemoglobin 13.7 g/dL (13.0-16.5); Lymphocyte # 1.85 X10^3/ul (0.83-4.51); Lymphocyte % 20.6 % (19-41); Mean Corp Hgb Conc 32.9 g/dL (32-36); Mean Corpuscular Hgb 30.2 pg (27.0-32.0); Mean Corpuscular Volume 92.1 fL (80-94); Mean Platelet Vol. 8.7 fl (6.2-12.0); Monocyte# 0.76 X10^3/uL; Monocyte% 8.5 % (0-10); NRBC Flagged by Analyzer 0 % (0-5); Neutrophil # 5.89 X10^3/uL (2.7-7.7); Neutrophil % 65.4 % (47-70); Platelet Count 656 K/mm3 (150-450); RBC Distribution Width CV 12.6 % (11.6-14.6); RBC Distribution Width SD 42.4 fl (35.1-43.9); Red Blood Count 4.53 M/mm3 (4.6-6.2)
[2021-03-24 12:29] LABS: AST(SGOT) 20 U/L (15-37); Alanine Aminotransfer ALT/SGPT 79 U/L (16-61); Alkaline Phosphatase 103 U/L (45-117); Anion Gap 6 (5-15); BUN 18 mg/dL (7-18); BUN/Creat Ratio 15.8 RATIO (10-20); Calcium,Total 9.5 mg/dL (8.5-10.1); Chloride 103 mmol/L (98-107); Creatinine, Serum 1.14 mg/dL (0.70-1.30); EST Glomerular Filtration Rate 75 mL/min (>60); Est Glom Filt Rate - Afr Amer 91 mL/min (>60); Globulin 4.1 g/dL (2.2-4.2); Glucose 83 mg/dL (74-106); Potassium 3.9 mmol/L (3.5-5.1); Protein, Total 8.1 g/dL (6.4-8.2); Sodium Level 138 mmol/L (136-145)
== END ==
PROVIDERS: PCP Family Medicine; Referring Provider Family Medicine; Visit Provider Family Medicine
DX: Z98.890 Other specified postprocedural states (principal); I44.1 Atrioventricular block, second degree
CPT/HCPCS: 36415; 71046; 80053; 85025

== ENCOUNTER → 2021-04-01 15:06 | Outpatient (CLI) | payer OTHER, SELFPAY ==
[2021-01-06 13:07] VITALS: BMI 26.4
== END ==
PROVIDERS: PCP Family Medicine; Referring Provider Internal Medicine Cardiovascular Disease; Visit Provider Internal Medicine Cardiovascular Disease
DX: I44.1 Atrioventricular block, second degree (principal); I34.0 Nonrheumatic mitral (valve) insufficiency; I34.1 Nonrheumatic mitral (valve) prolapse; E78.5 Hyperlipidemia, unspecified; Z98.890 Other specified postprocedural states
CPT/HCPCS: 93225; 93226

== ENCOUNTER → 2021-04-14 08:05 | Outpatient (CLI) | payer OTHER, SELFPAY ==
[2021-04-01 11:28] VITALS: BMI 26.4
--- NOTE | 2021-04-14 08:07 | PCM.CR.ITP ---
Diagnosis - General Information Admitting Diagnosis: Aortic Valve Repair Secondary Diagnosis: non-rheumatic mitral valve insufficiency, hyperlipidemia, nonrheumatic mitral valve prolapse, atrioventricular block -second degree. Personal Learning Style:: Audio/Visual, Written Barriers to Learning: Vision Impairment Gave educational material for:: Treating Heart Disease, Emotions & Heart Disease, Stress Management & Relaxation, Sleep Disorders & Heart Disease, How The Heart Works, What it means to have Heart Disease, How Coronary Artery Disease is Diagnosed, Heart Procedures, What Heart Medications Do, Risk Factors & Modifications, Living an Active Life, Nutrition - Education/Goals Individual Counseling: Initial Assessment: Abnormal Cholesterol Levels Cardiac Rehabilitation Goals: 1. Maintain the individual as the primary focus of care. 2. To improve the patient's quality of life. 3. Identification of cardiac risk factors and provide cardiac risk factor management. 4. Enhance the psychosocial status of the patient. 5. Reconditioning enough to allow the patient to resume customary activities. 6. Control symptoms of cardiac disease Personal Goals: Initial Assessment: Improve management of stress and emotions, Improve energy level, Participate in home exercise program, Get back to work, or to resume activities faster, Improve knowledge of cardiac disease, Improve muscle strength and endurance, Improve diet and eating habits (eat healthier), Control risk factors (learn risk factor modification) Scale for measuring improvement of personal goals: Enter appropriate number in Comments. 2 = Unchanged. 3 = Slightly Better. 4 = Moderate Improvement. 5 = Met my Goal - Diagnosis & Disease Process Outcomes/Goals: Pt IDs own risk factors & lifestyle modifications by Session 10, Verbalizes symptoms of angina & response by session 3., Pt independently manages Plan/Interventions: Assist Pt to ID & engage in lifestyle modification to reduce CVD risk, Instruct on individual risk factors, Review symptoms of angina & emergency actions, Review secondary diagnosis & identify educational needs. - Safety Referral to Physical Therapy: No Referral to [facility] Case Management: No Fall Risk Assessed:: No Assistive Devices:: None Exercise - Initial Assessment - Visit Date of Eval: 04/14/21 Session #:: 0 - precardiac rehab evaluation Mets: Pre-: >7 METS for 30 minutes by discharge - Physician Prescribed Exercise Modalities: Treadmill, Rower, Airdyne Frequency: 3x/week for 12 weeks [36 sessions] Intensity: 60-80% of age predicted maximum heart rate reserve Current METSs:: 4.0 Target Heart Rate:: 116-152 Resting Blood Pressure: 137/81 EKG Type: Sinus Rhythm wiht short MO interval - Outcomes & Goals Goals:: Verbalizes understanding of THR, RPE & goal METS by session 6, Documents in home exercise log/reports 30 min aerobic 5 day/wk by DC, Demonstrates accurate pulse taking by DC - Intervention & Plan Exercise Program Goals: Instruct on personal THR & RPE, Instruct on MET level & personal MET goal, Show patient to take own pulse /validate performance until accurate, Instruct on home exercise - Physical Activity Home Exercise Physical Activity - Home Exercise: Safe Exercise, Warm-up, Self-monitoring, Cool-Down, Home Exercise > 30 min Daily, Sitting Time <3 hours/daily - Outcomes & Goals Outcomes/Goals: Demonstrates correct Warm-up/exercise Cool-Down (S3) if = 2.5 METs, Verbalizes symptoms of exercise intolerance by Session 3 (S3), Demonstrate safe equipment use (S3) & follows exercise prescrition (6) - Intervention & Plan Plan/Intervention: Instruct warm-up & cool-down if exercising at > 2 METs, Instruct on symptoms of exercise intolerance & actions to take, Instruct & monitor on saf, Assess intial functional capacity & safety risk Nutrition - Initial Assessment - Program Goals Nutrition Program Goals: LDL <100 optimal. 100 - 129 Near optimal. 130 - 159 Borderline High. 160 - 189 High. Total Cholesterol <200 desirable. 200 - 239 Borderline High. >/= 240 High. HDL < 40 Low >/=60 High. Triglycerides <150 desirable. <199 optimal. VlDL 5 - 40. HgbA1C <7%. BMI <25 Patient has diagnosis of Hyperlipidemia (ICD E78)?: Yes - Visit Date of Assessment:: 04/14/21 Session #:: 0 - pre-cardiac rehab evaluation - Cholesterol/Lipids Triglycerides (mg/dL): 127 - 07/07/2020 Total Cholesterol (mg/dL): 209 LDL Cholesterol (mg/dL): 134 HDL Cholesterol (mg/dL): 50 Outcomes/Goals: Pt IDs own risk factors & lifestyle modifications by Session 10, Pt independently manages Intervention/Plan: Instruct on personal lipid levels & lipid goals/NCEP guidelines, Instruct on cholesterol - Diabetes (Other Core Measures) Diabetes Type: Not Applicable - Weight Mgt (Other Care) Not Applicable: Yes Height: 5 ft 8 in Weight:: 174 lb BMI: 26.4 Diagnosis Overweight/Obesity BMI> 30% ICD-10 E66: No Diagnosis High BMI/Morbid Obesity BMI> 35% ICD-10 Z68: No Outcomes/Goals: Pt sets, maintains & shows weight loss goal & trend during rehab Intervention/Plan: Instruct on ideal BMI & set weight loss goal w/patient - Healthy Eating Habits Will attend diet classes:: Yes Outcomes/Goals:: Consume diet rich in vegs,fruits,whole grain/high fiber,fish,lean meat, Limit sat/trans fats,cholesterol & added salts & sugars Intervention/Plan:: Assess current eating habits Nutrition - 30-Day Assessment Nutrition - 60-Day Assessment Nutrition - 90-Day Assessment Nutrition - Final Assessment Medical - Initial Assessment - Visit Date of Eval: 04/14/21 Session #:: 0 - Precardia rehab evaluation - Medication Compliance Preventative Medication(s):: Aspirin H/O mental health issues: depression, anxiety, or addiction?: Yes Doesn?t believe in the benefits of treatment?: No Believes medications are unnecessary or harmful?: No Has a concern about medication side effects?: No Expresses concern over the cost of medications?: No Outcomes/Goals: Verbalizes medications,desired effect & common side effects @ DC, Pt self-reports following medication regimen, Keeps card in wallet w/medications listed by DC Interventions/plans: Instruct on medication effects & side effects, Review medication list w/patient every two weeks, Instruct importance of taking meds as ordered & assist problem solving - Tobacco Use Tobacco Use: Non-smoker - Hypertension Resting Blood Pressure:: 137/81 - Stage I Hypertension [place] [employer] Hypertension Guidelines: [place] [employer] Hypertension Guidelines. Normal BP Less than 120/80. Elevated BP 120/80. Hypertension Stage 1: BP 130-139/80-89. Hypertesnion Stage 2: BP 140 or higher/90 or higher. Hypertension Crisis: BP higher than 180/120 Outcomes/Goals: Able to verbalize/achieve optimal blood pressure <130/80, Incorporates diet changes & exercise for blood pressure control by DC Interventions/plan: Instruct on optimal blood pressure, hypertension & medications, Instruct on effects of sodium, alcohol, stress, exercise &hypertension - Tobacco Cessation Referral Smoking Cessation Referral:: No Individual Education/Counseling:: No Education Schedule Given:: Yes Medical- 30-Day Assessment Medical- 60-Day Assessment Medical- 90-Day Assessment Medical - Final Assessment Psychosocial - Initial Assess - VIsit Date of Eval: 04/14/21 Session #:: 0 - pre-cardiac rehab evaluation Not Applicable: No History of Emotional Disorders: Depression - Psychosocial Test Tool Used:: Cherie Jin QOL Cardiac, PHQ-9 Questionnaire phq-9 Severity: Severity. 1-4 Minimal Depression. 5-9 Mild Depression. 10-14 Moderate Depression. 15-19 Moderately Sever Depression. 20-27 Severe Depression. Rule: See PHQ-9 Score: 13 - Moderate Depression indicated by PHQ score. Patient could benefit from intervention. - Referral to Behavioral Health PS - Interventions: Yes Referral to Behavioral Health if PHQ-9 score >9: - 13 Score Behavioral Health Counseling recommended, Yes Referral to Physician if PHQ-9 if score is 5-9: - 13 Score Moderate Depression; , Yes Attend Stress Management Classes, No Referral to [facility] - Outcomes/Goals: See list Psychosocial Outcomes/Goals:: ID's personal stressors & 2 strategies to manage stress by discharge - Intervention/Plan: See List Interventions/Plan:: Assess stressors,coping strategies & signs of derpression on admission, Instruct/assist pt to develop coping & personal stress Mgt strategies, Instruct patient to recognize signs & symptoms of depression, Instruct patient to recog Psychosocial - 30-Day Assess Psychosocial - 60-Day Assess Psychosocial - 90-Day Assess Psychosocial - Final Assessmen Patient Health Questionnaire Initial Assessment 1. Little interest or pleasure in doing things: Several days 2. Feeling down, depressed, or hopeless: Several days 3. Trouble falling or staying asleep, or sleeping too much: Nearly every day 4. Feeling tired or having little energy: Nearly every day 5. Poor appetite or overeating: Several days 6. Feeling bad about yourself -- or that you are a failure or have let yourself or your family down: Several days 7. Trouble concentrating on things, such as reading the newspaper or watching television: Nearly every day 8. Moving or speaking so slowly that other people could have noticed. Or the opposite - being so fidgety or restless that you have been moving around a lot more than usual: Not at all 9. Thoughts that you would be better off , or of hurting yourself in some way: Not at all How difficult have these problems made it for you to do your work, take care of things at home, or get along with other people?: Somewhat difficult Total Score: 13 LANIE-Q SV Test - Statements CAD is a disease of the arteries in the heart: False Examples of risk factors for heart disease: True Angina is chest pain or discomfort: True The benefits of resistance training include: True Eating more meat and dairy products: False Anti-platelet medications such as aspirin are important: True The only effective way to manage stress: False An exercise warm-up slowly increases heart rate: True Prepared, processed foods usually have high sodium: True Depression is common after a heart attack: True The statin medications lower cholesterol: True To control blood pressure, lower the amount of sodium: True If someone gets chest discomfort during walking: False Transfats are partially hydrogenated vegetable oils: True Sleep apnea that is not treated increases the risk: True To control cholesterol, one should become a vegetarian: False Someone knows if he/she is exercising at the right level: True Diabetes cannot be prevented with exercise & health eating: False Stress is a large risk for heart attack: True A diet that can help lower blood pressure is rich in: True - Total Score Total Correct Responses: 19 Self-Efficacy Initial Assessment We would like to know how confident you are in doing certain activities. Please select your confidence level for:: Select your confidence level for the following using the scale 1-10 where 1 is not at all confident and 10 is totally confident. Your score is the average of all 6 responses. Fatigue: How confident are you that you can keep the fatigue caused by your disease from interfering with the things you want to do? Select Number: 5 Physical Discomfort or Pain: How confident are you that you can keep the physical discomfort or pain of your disease from interfering with the things you want to do? Select Number: 6 Emotional Distress: How confident are you that you can keep the emotional distress caused by your disease from interfering with the things you want to do? Select Number: 9 Other Symptoms or Health Problems: How confident are you that you can keep other symptoms or health problems from interfering with the things you want to do? Select Number: 8 Different Tasks and Activities: How confident are you that you can do the different tasks and activities needed to manage your health condition so as to reduce your need to see a doctor? Select Number: 8 Medication: How confident are you that you can do things other than just taking medication to reduce how much your illness affects your everyday life? Select Number: 8 Total Score:: 7 Nutrition Survey - Nutrition Survey Initial Have you lost >10 lbs over the past 2 months without trying?: No Are you following a special diet at home for diabetes, low fat, or low salt?: No Are you interested in meeting with a dietitian for help understanding your diet?: No Do you eat less than 3 meals a day?: No Do you eat fatty meats (cohen, sausage, ribs, etc), fried foods, desserts, large amounts of salad dressings, margarine, butter, or cheese most days?: Yes Do you have food allergies? [Enter types in comment field]: Yes - Shellfish derived. Do you eat in restaurants more than 3 times a week?: Yes Do you season food with salt, seasoning salt, or garlic salt?: Yes Do you used canned, boxed, frozen meals, or soups, seasoning packets?: Yes Total Score:: 5
--- NOTE | 2021-04-14 08:08 | PCM.CR.HP2 ---
CR - History & Physical - General Arrival date:: 04/14/21 Arrival time:: 08:10 Date of Referral:: 04/01/21 Date of CR Evaluation:: 04/14/21 Referring Physician: Dr. Esquivel Primary Diagnosis: Aortic valve repair - History of Present Cardiac Event Onset Date: Enter Onset Date of cardiac illnesses in Comment field below Heart valve replacement or repair:: Yes - 03/09/2021 @ [facility] [place] Type of Symptoms:: no real symptoms, occasioanlly would get short of breath if over exerted myself, and rare palpitations. - Sleep Disorder Evaluation Hx of Sleep Apnea: Yes Do you snore loudly (louder than talking or can be heard through closed doors)?: Yes Do you often feel tired/ fatigued/ sleepy during daytime?: No Has anyone observed you stop breathing during sleep?: No History of Hypertension (for STOP score): No - Has previous diagnosis of ARTEM and has bIPAP STOP Results: Negative - Medications Home Medications: Ambulatory Orders Medication Instructions Recorded aspirin 81 mg tablet,delayed 81 mg PO DAILY 12/19/20 release - Allergies Allergies/Adverse Reactions: Allergies shellfish derived Adverse Reaction (Verified 04/14/21 08:13) Nausea/Vom/Diarrhea Advanced Directives - Advanced Directives Power of Air Traffic Control Supervisor: No Living Will: No Advance Directives Information Provided: Yes Advance Directives on File: No DNR Order?:: No - MOLST See MOLST form: No Past Medical History - Covid-19 Screening Fever: No Unexplained muscle aches: No Current respiratory symptoms: No Upper respiratory infections symptoms: No Gastro-intestinal symptoms: No Wmo-Mhjk-Iclqyv symptoms: No Has tested positive for COVID-19 in last 30 days: No Date of testin12/10/20 - Moderna Vaccine Had contact w/person w/symptoms or Covid-19 (+) last 14 days: No Has High Risk Exposures ID'd by Health dept/Inf Control team: No 65 years or older:: No Lives in Assisted Living facility:: No Has a chronic lung disease or moderate to severe asthma:: No Has a serious heart condition:: No Immunocompromised:: No Severely obese (Body Mass Index of 40 or higher):: No Diabetic:: No Has chronic kidney disease undergoing dialysis:: No - Past Medical Illness Medical History: Past Medical History (Last Reviewed 04/01/21 @ 16:[address] Avel Esquivel MD) Depression F32.9 Hyperlipidemia E78.5 Nonrheumatic mitral (valve) insufficiency I34.0 Nonrheumatic mitral (valve) prolapse I34.1 Obstructive sleep apnea G47.33 Second degree AV block, Mobitz type I Onset Date: 03/12/21 I44.1 s/p MVR - Past Surgical History Surgical History: Past Surgical History (Last Reviewed 04/01/21 @ 16:[address] Avel Esquivel MD) History of adenoidectomy Z90.89 History of left heart catheterization Onset Date: 01/07/21 Z98.890 History of left inguinal hernia repair Onset Date: 07/2017 Z98.890, Z87.19 History of mitral valve repair Onset Date: 03/09/21 Z98.890 Robotic MV repair (Triangular resection P2, P2 neochords, #33 [place] band) 03/09/21 History of repair of rotator cuff Z98.890 History of umbilical hernia repair Onset Date: 07/2017 Z98.890, Z87.19 - Family History Summary Family History: Family History (Last Reviewed 04/01/21 @ 16:[address] Avel Esquivel MD) Grandfather CAD (coronary artery disease) maternal Grandmother CAD (coronary artery disease) maternal Grandmother Heart disease paternal CHB PPM Social History - Smoking History Smoking Status: Former smoker - smoked in the service and never really picked up the habit. - Occupation Occupation (List type of work in comments):: Employed Hours worked per day:: 12 - 05/03/2021 - Hobbies, Recreation, Social Activities Hobbies: Other Recreational Activities: I am able to engage in most, but not all activities Social Environment - Status Marital Status: - Current Living Arrangements Living Environment:: Family - Children How many children do you have?: 2 Do any of your children live nearby?: Yes - Safety Do you feel safe in your surroundings?: Yes Review of Systems - Review of Systems Hints: Right click = Denies (Slash). Left click = Reports ([place]) Review of Present Symptoms: Reports: Operative Discomfort - very little discomfort, Fatigue, Heart Arrhythmia/Irregularities - History of Mobitz I atrioventricular block, Appetite - Normal, Appetite - Special Diet, Sleep - Normal. Denies: Sexual Changes - Pain Is Patient Pain Free?: Yes Pain Location: none Pain Level: 0/10 Risk Factor Assessment - Chief Complaint Chief Complaint: Patient discovered heart murmur and aortic valve issues, patient stated he is predisposed genetic make-up which believes was the cause of the problem. Patient reports only repaired the valve and did not do a replacement. - Vital Signs Temperature: 97.5 F Respiratory Rate: 16 Pulse Ox: 98 Blood Pressure: 137/81 - Pulse Pulse Rate: 74 - Blood Cholesterol/Lipids Total Cholesterol (mg/dL) Goal = less than 200 mg/dL: 209 - 07/07/2020 HDL Cholesterol (mg/dL) Goal = less than 40 mg/dL: 50 LDL Cholesterol (mg/dL) Goal = less than 70 mg/dL: 134 Triglycerides (mg/dL) Goal = less than 150 mg/dL: 127 - Obesity Height: 5 ft 8 in Weight:: 174 lb Weight in Pounds: 174.0 lbs Weight Source: Standing Scale Body Mass Index (BMI): 26.4 - Physical Inactivity Physical Inactivity: Reg Exercise 30 min/day - Risk Stratification Risk Guidelines: Lowest Risk: Risk Factor for Smoking, Risk Factor for Dyslipidemia, Risk Factor for Diabetes, Risk Factor for Obesity, Risk Factor for Hypertension, Risk Factor for Sedentary Lifestyle, Risk Factor for Depression - Family History Family History: Family History (Last Reviewed 04/01/21 @ 16:[address] Avel Esquivel MD) Grandfather CAD (coronary artery disease) Grandmother CAD (coronary artery disease) Grandmother Heart disease Motivation - Motivation to Participate On a scale of 1 to 10, how prepared are you to commit to attending program?: 10 What do you see as barriers to successfully being able to complete the program?: none What do you see as the benefits of succesfully completing the program? In other words, what do you hope to get out of participating in the program?: stronger, back in shape Are there issues you are dealing with that will interfere with completing the program?: none Do you have a spouse or signficant other, family or friends who will help support you to complete the program?: yes.
[2021-04-14 08:29] VITALS: BP 137/81; BMI 26.4
[2021-04-14 08:38] VITALS: BP 137/81; PULSE 74; RESP 16; TEMP 36.4; O2SAT 98; BMI 26.4
== END ==
PROVIDERS: PCP Family Medicine; Referring Provider Internal Medicine Cardiovascular Disease; Visit Provider Internal Medicine Cardiovascular Disease
DX: E78.5 Hyperlipidemia, unspecified (principal); G47.33 Obstructive sleep apnea (adult) (pediatric)

== ENCOUNTER 2021-04-21 13:00 | Outpatient (RCR) | payer OTHER, SELFPAY ==
[2021-04-14 08:29] VITALS: BMI 26.4
[2021-04-14 08:38] VITALS: BMI 26.4
== END 2021-04-21 23:59 ==
LOC: CR 13:00
PROVIDERS: PCP Family Medicine; Referring Provider Internal Medicine Cardiovascular Disease; Visit Provider Internal Medicine Cardiovascular Disease
DX: I34.0 Nonrheumatic mitral (valve) insufficiency (principal); E78.5 Hyperlipidemia, unspecified; I34.1 Nonrheumatic mitral (valve) prolapse; I44.1 Atrioventricular block, second degree; Z98.890 Other specified postprocedural states
CPT/HCPCS: 93798

== ENCOUNTER 2021-05-21 13:00 | Outpatient (RCR) | payer OTHER, SELFPAY ==
[2021-04-14 08:29] VITALS: BMI 26.4
[2021-04-14 08:38] VITALS: BMI 26.4
--- NOTE | 2021-05-14 06:45 | CR.ITP_ITS ---
Diagnosis Exercise - 30-day Assessment - Visit Date of Eval: 05/14/21 Session #:: 10 - Physician Prescribed Exercise Modalities: Treadmill, Airdyne, NuStep Frequency: 3x/week for 12 weeks [36 sessions] Intensity: 60-80% of age predicted maximum heart rate reserve Current METSs:: 6.0 increase from 4.0 Target Heart Rate:: 116-152 Current RPE:: 12-13 Maximum Excercise HR:: 131 Resting Blood Pressure: 118/74 Maximum Exercise Blood Pressure: 132/80 EKG Type: SB to sinus tach occas. PACs, PVCs, vent bigeminy, and periods PAT. - Outcomes & Goals Goals:: Verbalizes understanding of THR, RPE & goal METS by session 6, Documents in home exercise log/reports 30 min aerobic 5 day/wk by DC, Demonstrates accurate pulse taking by DC - Intervention & Plan Exercise Program Goals: Instruct on personal THR & RPE, Instruct on MET level & personal MET goal, Show patient to take own pulse /validate performance until accurate, Instruct on home exercise - 30-day Reassessments 30 day Reassessments:: Progressing - Physical Activity Home Exercise Physical Activity - Home Exercise: Safe Exercise, Warm-up, Self-monitoring, Cool-Down, Home Exercise > 30 min Daily, Sitting Time <3 hours/daily - Outcomes & Goals Outcomes/Goals: Demonstrates correct Warm-up/exercise Cool-Down (S3) if = 2.5 METs, Verbalizes symptoms of exercise intolerance by Session 3 (S3), Demonstrate safe equipment use (S3) & follows exercise prescrition (6) - Intervention & Plan Plan/Intervention: Instruct warm-up & cool-down if exercising at > 2 METs, Instruct on symptoms of exercise intolerance & actions to take, Instruct & monitor on saf, Assess intial functional capacity & safety risk - 30-day Reassessments 30 day Reassessments:: Progressing Nutrition - Initial Assessment Nutrition - 30-Day Assessment - Program Goals Nutrition Program Goals: LDL <100 optimal. 100 - 129 Near optimal. 130 - 159 Borderline High. 160 - 189 High. Total Cholesterol <200 desirable. 200 - 239 Borderline High. >/= 240 High. HDL < 40 Low >/=60 High. Triglycerides <150 desirable. <199 optimal. VlDL 5 - 40. HgbA1C <7%. BMI <25 Patient has diagnosis of Hyperlipidemia (ICD E78)?: Yes - Visit Date of Assessment:: 05/14/21 Session #:: 10 - Cholesterol/Lipids Triglycerides (mg/dL): 127 - 07/07/2020 Total Cholesterol (mg/dL): 209 LDL Cholesterol (mg/dL): 134 HDL Cholesterol (mg/dL): 50 Outcomes/Goals: Pt IDs own risk factors & lifestyle modifications by Session 10, Verbalizes symptoms of angina & response by session 3., Pt independently manages Intervention/Plan: Instruct on cholesterol Referral to dietitian:: No 30-day Reassessments:: Progressing - Diabetes (Other Core Measures) Diabetes Type: Not Applicable - Weight Mgt (Other Care) Not Applicable: Yes Height: 5 ft 8 in Weight:: 179 lb BMI: 27.2 Diagnosis Overweight/Obesity BMI> 30% ICD-10 E66: No Diagnosis High BMI/Morbid Obesity BMI> 35% ICD-10 Z68: No Outcomes/Goals: Pt sets, maintains & shows weight loss goal & trend during rehab Intervention/Plan: Instruct on ideal BMI & set weight loss goal w/patient 30 day Reassessments:: Met - Healthy Eating Habits Will attend diet classes:: Yes Outcomes/Goals:: Consume diet rich in vegs,fruits,whole grain/high fiber,fish ,lean meat, Limit sat/trans fats,cholesterol & added salts & sugars Intervention/Plan:: Assess current eating habits 30-day Reassessments:: Met - Education Gave educational materials for:: Healthy eating Nutrition - 60-Day Assessment Nutrition - 90-Day Assessment Nutrition - Final Assessment Medical - Initial Assessment Medical- 30-Day Assessment - Visit Date of Eval: 05/14/21 Session #:: 10 - Medication Compliance Preventative Medication(s):: Aspirin H/O mental health issues: depression, anxiety, or addiction?: Yes Doesn?t believe in the benefits of treatment?: No Believes medications are unnecessary or harmful?: No Has a concern about medication side effects?: No Expresses concern over the cost of medications?: No Outcomes/Goals: Verbalizes medications,desired effect & common side effects @ DC, Pt self-reports following medication regimen, Keeps card in wallet w/medications listed by DC Interventions/plans: Instruct on medication effects & side effects, Review medication list w/patient every two weeks, Instruct importance of taking meds as ordered & assist problem solving 30-day Reassessments:: Progressing - Tobacco Use Tobacco Use: Non-smoker - Hypertension Resting Blood Pressure:: 118/74 [place] [employer] Hypertension Guidelines: [place] [employer] Hypertension Guidelines. Normal BP Less than 120/80. Elevated BP 120/80. Hype rtension Stage 1: BP 130-139/80-89. Hypertesnion Stage 2: BP 140 or higher/90 or higher. Hypertension Crisis: BP higher than 180/120 Peak Exercise Blood Pressure:: 132/80 Outcomes/Goals: Able to verbalize/achieve optimal blood pressure <130/80, Incorporates diet changes & exercise for blood pressure control by DC Interventions/plan: Instruct on optimal blood pressure, hypertension & medications, Instruct on effects of sodium, alcohol, stress, exercise &hypertension 30 day Reassessments:: Progressing - Tobacco Cessation Referral Smoking Cessation Referral:: No Individual Education/Counseling:: No Education Schedule Given:: Yes Medical- 60-Day Assessment Medical- 90-Day Assessment Medical - Final Assessment Psychosocial - Initial Assess Psychosocial - 30-Day Assess - VIsit Date of Eval: 05/14/21 Session #:: 10 Not Applicable: No History of previous Mental disease:: Yes History of Emotional Disorders: Depression - Psychosocial Test Tool Used:: PHQ-9 Questionnaire phq-9 Severity: Severity. 1-4 Minimal Depression. 5-9 Mild Depression. 10-14 Moderate Depression. 15-19 Moderately Sever Depression. 20-27 Severe Depression. Rule: See PHQ-9 Score: 9 - Depression-Mild - Referral to Behavioral Health PS - Interventions: Yes Referral to Physician if PHQ-9 if score is 5-9: - Patietn may benefit from Behavioral Health Counseling, Yes Attend Stress Management Classes, No Referral to Behavioral Health if PHQ-9 score >9:, No Referral to [facility] - Outcomes/Goals: See list Psychosocial Outcomes/Goals:: ID's personal stressors & 2 strategies to manage stress by discharge - Intervention/Plan: See List Interventions/Plan:: Assess stressors,coping strategies & signs of derpression on admission, Instruct/assist pt to develop coping & personal stress Mgt strategies, Instruct patient to recognize signs & symptoms of depression, Instruct patient to recog - 30-day Reassessments: 30 day Reassessments:: Progressing Psychosocial - 60-Day Assess Psychosocial - 90-Day Assess Psychosocial - Final Assessmen Patient Health Questionnaire 30-Day Re-eval Assessment 1. Little interest or pleasure in doing things: Several days 2. Feeling down, depressed, or hopeless: Several days 3. Trouble falling or staying asleep, or sleeping too much: More than half the days 4. Feeling tired or having little energy: More than half the days 5. Poor appetite or overeating: Several days 6. Feeling bad about yourself -- or that you are a failure or have let yourself or your family down: Not at all 7. Trouble concentrating on things, such as reading the newspaper or watching television: More than half the days 8. Moving or speaking so slowly that other people could have noticed. Or the opposite - being so fidgety or restless that you have been moving around a lot more than usual: Not at all 9. Thoughts that you would be better off , or of hurting yourself in some way: Not at all How difficult have these problems made it for you to do your work, take care of things at home, or get along with other people?: Somewhat difficult Total Score: 9 Self-Efficacy 30-Day Re-eval Assessment We would like to know how confident you are in doing certain activities. Please select your confidence level for:: Select your confidence level for the following using the scale 1-10 where 1 is not at all confident and 10 is totally confident. Your score is the average of all 6 responses. Fatigue: How confident are you that you can keep the fatigue caused by your disease from interfering with the things you want to do? Select Number: 7 Physical Discomfort or Pain: How confident are you that you can keep the physical discomfort or pain of your disease from interfering with the things you want to do? Select Number: 8 Emotional Distress: How confident are you that you can keep the emotional distress caused by your disease from interfering with the things you want to do? Select Number: 9 Other Symptoms or Health Problems: How confident are you that you can keep other symptoms or health problems from interfering with the things you want to do? Select Number: 9 Different Tasks and Activities: How confident are you that you can do the different tasks and activities needed to manage your health condition so as to reduce your need to see a doctor? Select Number: 10 Medication: How confident are you that you can do things other than just taking medication to reduce how much your illness affects your everyday life? Select Number: 10 Total Score:: 8 Nutrition Survey
[2021-05-14 06:53] VITALS: BP 118/74; BP 132/80; BMI 27.2
== END 2021-05-22 23:59 ==
LOC: CR 13:00
PROVIDERS: PCP Family Medicine; Referring Provider Internal Medicine Cardiovascular Disease; Visit Provider Internal Medicine Cardiovascular Disease
DX: Z98.890 Other specified postprocedural states (principal); I34.0 Nonrheumatic mitral (valve) insufficiency; E78.5 Hyperlipidemia, unspecified; I34.1 Nonrheumatic mitral (valve) prolapse; I44.1 Atrioventricular block, second degree
CPT/HCPCS: 93798

== ENCOUNTER 2021-06-17 12:04 | Outpatient (RCR) | payer OTHER, SELFPAY ==
[2021-01-06 13:07] VITALS: BMI 26.4
[2021-04-14 08:38] VITALS: BMI 26.4
[2021-05-14 06:53] VITALS: BMI 27.2
== END 2021-06-22 23:59 ==
LOC: EMPH 12:04
PROVIDERS: PCP Family Medicine; Referring Provider Family Medicine Geriatric Medicine; Visit Provider Family Medicine Geriatric Medicine
DX: Z03.818 Encounter for observation for suspected exposure to other biological agents ruled out (principal)
CPT/HCPCS: 87426

== ENCOUNTER 2021-06-21 13:00 | Outpatient (RCR) | payer OTHER, SELFPAY ==
[2021-04-14 08:38] VITALS: BMI 26.4
[2021-05-14 06:53] VITALS: BMI 27.2
[2021-05-23 00:35] VITALS: BP 118/74; BP 132/80
--- NOTE | 2021-06-14 06:56 | CR.ITP_ITS ---
Diagnosis Exercise - 60-day Assessment - Visit Date of Eval: 06/14/21 Session #:: 20 - Patient has missed 4 sessions due to work schedule conflict - Physician Prescribed Exercise Modalities: Treadmill, Airdyne, NuStep Frequency: 3x/week for 12 weeks [36 sessions] Intensity: 60-80% of age predicted maximum heart rate reserve Current METSs:: 7.5 increase from 6.0 Target Heart Rate:: 116-152 Current RPE:: 13-14 Maximum Excercise HR:: 166 on [employer] Airdyne bike Resting Blood Pressure: 128/70 Maximum Exercise Blood Pressure: 138/84 EKG Type: NSR to sinus tach frequent PACs, rare ventricular bigeminy. Current Physical Activity or Exercising minutes: 30-45 - Outcomes & Goals Goals:: Verbalizes understanding of THR, RPE & goal METS by session 6, Documents in home exercise log/reports 30 min aerobic 5 day/wk by DC, Demonstrates accurate pulse taking by DC - Intervention & Plan Exercise Program Goals: Instruct on personal THR & RPE, Instruct on MET level & personal MET goal, Show patient to take own pulse /validate performance until accurate, Instruct on home exercise - 30-day Reassessments 30 day Reassessments:: Met - Physical Activity Home Exercise Physical Activity - Home Exercise: Safe Exercise, Warm-up, Self-monitoring, Cool-Down, Home Exercise > 30 min Daily, Sitting Time <3 hours/daily - Outcomes & Goals Outcomes/Goals: Demonstrates correct Warm-up/exercise Cool-Down (S3) if = 2.5 METs, Verbalizes symptoms of exercise intolerance by Session 3 (S3), Demonstrate safe equipment use (S3) & follows exercise prescrition (6) - Intervention & Plan Plan/Intervention: Instruct warm-up & cool-down if exercising at > 2 METs, Instruct on symptoms of exercise intolerance & actions to take, Instruct & monitor on saf, Assess intial functional capacity & safety risk - 30-day Reassessments 30 day Reassessments:: Met Nutrition - Initial Assessment Nutrition - 30-Day Assessment Nutrition - 60-Day Assessment - Program Goals Nutrition Program Goals: LDL <100 optimal. 100 - 129 Near optimal. 130 - 159 Borderline High. 160 - 189 High. Total Cholesterol <200 desirable. 200 - 239 Borderline High. >/= 240 High. HDL < 40 Low >/=60 High. Triglycerides <150 desirable. <199 optimal. VlDL 5 - 40. HgbA1C <7%. BMI <25 Patient has diagnosis of Hyperlipidemia (ICD E78)?: Yes - Visit Date of Assessment:: 06/14/21 Session #:: 20 - Cholesterol/Lipids Triglycerides (mg/dL): 127 Total Cholesterol (mg/dL): 209 LDL Cholesterol (mg/dL): 134 HDL Cholesterol (mg/dL): 50 Determine presence & major risk factors that modify LDL goal: Hypertension or hypertensive medication, Family history of premature CHD in Male < 55 years: female <65 yearsFa Outcomes/Goals: Pt IDs own risk factors & lifestyle modifications by Session 10, Verbalizes symptoms of angina & response by session 3., Pt independently manages Intervention/Plan: Instruct on personal lipid levels & lipid goals/NCEP guidelines, Instruct on cholesterol Referral to dietitian:: No - Patient declined services 30-day Reassessments:: Progressing - Diabetes (Other Core Measures) Diabetes Type: Not Applicable - Weight Mgt (Other Care) Not Applicable: Yes Height: 5 ft 8 in Weight:: 179 lb BMI: 27.2 Diagnosis Overweight/Obesity BMI> 30% ICD-10 E66: No Diagnosis High BMI/Morbid Obesity BMI> 35% ICD-10 Z68: No Outcomes/Goals: Pt sets, maintains & shows weight loss goal & trend during rehab Intervention/Plan: Instruct on ideal BMI & set weight loss goal w/patient, Assist pt to ID & incorporate diet changes for weight loss by S9, Encourage goal of using 250-300dcal per session for weight loss 30 day Reassessments:: Met Reassessment Notes & Comments:: Patient has made changes in his daily diet, eating more fresh/frozen fruits and vegetables, whole grains and limiting red meats. - Healthy Eating Habits Will attend diet classes:: Yes Outcomes/Goals:: Consume diet rich in vegs,fruits,whole grain/high fiber,fish,lean meat, Limit sat/trans fats,cholesterol & added salts & sugars Intervention/Plan:: Assess current eating habits 30-day Reassessments:: Met - Education Gave educational materials for:: Healthy eating Nutrition - 90-Day Assessment Nutrition - Final Assessment Medical - Initial Assessment Medical- 30-Day Assessment Medical- 60-Day Assessment - Visit Date of Eval: 06/14/21 Session #:: 20 - Medication Compliance Preventative Medication(s):: Aspirin H/O mental health issues: depression, anxiety, or addiction?: No Doesn?t believe in the benefits of treatment?: No Believes medications are unnecessary or harmful?: No Has a concern about medication side effects?: No Expresses concern over the cost of medications?: No Outcomes/Goals: Verbalizes medications,desired effect & common side effects @ DC, Pt self-reports following medication regimen, Keeps card in wallet w/medications listed by DC Interventions/plans: Instruct on medication effects & side effects, Review medication list w/patient every two weeks, Instruct importance of taking meds as ordered & assist problem solving 30-day Reassessments:: Met - Tobacco Use Tobacco Use: Non-smoker - Hypertension Hypertension Diagnosis:: Hypertension ICD-10 I10 Resting Blood Pressure:: 128/70 [place] [employer] Hypertension Guidelines: [place] [employer] Hypertension Guidelines. Normal BP Less than 120/80. Elevated BP 120/80. Hypertension Stage 1: BP 130-139/80-89. Hypertesnion Stage 2: BP 140 or higher/90 or higher. Hypertension Crisis: BP higher than 180/120 Peak Exercise Blood Pressure:: 140/74 Outcomes/Goals: Able to verbalize/achieve optimal blood pressure <130/80, Incorporates diet changes & exercise for blood pressure control by DC Interventions/plan: Instruct on optimal blood pressure, hypertension & medications, Instruct on effects of sodium, alcohol, stress, exercise &hypertension 30 day Reassessments:: Met - Tobacco Cessation Referral Smoking Cessation Referral:: No Individual Education/Counseling:: No Education Schedule Given:: Yes Medical- 90-Day Assessment Medical - Final Assessment Psychosocial - Initial Assess Psychosocial - 30-Day Assess Psychosocial - 60-Day Assess - VIsit Date of Eval: 06/14/21 Session #:: 20 Not Applicable: Yes History of previous Mental disease:: No - Psychosocial Test Tool Used:: PHQ-9 Questionnaire phq-9 Severity: Severity. 1-4 Minimal Depression. 5-9 Mild Depression. 10-14 Moderate Depression. 15-19 Moderately Sever Depression. 20-27 Severe Depression. Rule: - Referral to Behavioral Health PS - Interventions: Yes Attend Stress Management Classes, No Referral to Behavioral Health if PHQ-9 score >9:, No Referral to [facility], No Referral to Physician if PHQ-9 if score is 5-9: - Outcomes/Goals: See list Psychosocial Outcomes/Goals:: ID's personal stressors & 2 strategies to manage stress by discharge - Intervention/Plan: See List Interventions/Plan:: Assess stressors,coping strategies & signs of derpression on admission, Instruct/assist pt to develop coping & personal stress Mgt strategies, Instruct patient to recognize signs & symptoms of depression, Instruct patient to recog - 30-day Reassessments: 30 day Reassessments:: Met Psychosocial - 90-Day Assess Psychosocial - Final Assessmen Patient Health Questionnaire 60-Day Re-eval Assessment 1. Little interest or pleasure in doing things: Not at all 2. Feeling down, depressed, or hopeless: Not at all 3. Trouble falling or staying asleep, or sleeping too much: Several days 4. Feeling tired or having little energy: Several days 5. Poor appetite or overeating: Not at all 7. Trouble concentrating on things, such as reading the newspaper or watching television: Several days 8. Moving or speaking so slowly that other people could have noticed. Or the opposite - being so fidgety or restless that you have been moving around a lot more than usual: Not at all 9. Thoughts that you would be better off , or of hurting yourself in some way: Not at all How difficult have these problems made it for you to do your work, take care of things at home, or get along with other people?: Somewhat difficult Total Score: 3 Self-Efficacy 60-Day Re-eval Assessment We would like to know how confident you are in doing certain activities. Please select your confidence level for:: Select your confidence level for the following using the scale 1-10 where 1 is not at all confident and 10 is totally confident. Your score is the average of all 6 responses. Fatigue: How confident are you that you can keep the fatigue caused by your disease from interfering with the things you want to do? Select Number: 9 Physical Discomfort or Pain: How confident are you that you can keep the physical discomfort or pain of your disease from interfering with the things you want to do? Select Number: 9 Emotional Distress: How confident are you that you can keep the emotional distress caused by your disease from interfering with the things you want to do? Select Number: 10 Other Symptoms or Health Problems: How confident are you that you can keep other symptoms or health problems from interfering with the things you want to do? Select Number: 10 Different Tasks and Activities: How confident are you that you can do the different tasks and activities needed to manage your health condition so as to reduce your need to see a doctor? Select Number: 10 Medication: How confident are you that you can do things other than just taking medication to reduce how much your illness affects your everyday life? Select Number: 10 Total Score:: 9 Nutrition Survey
[2021-06-14 07:06] VITALS: BP 128/70; BP 140/74; BMI 27.2
== END 2021-06-22 23:59 ==
LOC: CR 13:00
PROVIDERS: PCP Family Medicine; Referring Provider Internal Medicine Cardiovascular Disease; Visit Provider Internal Medicine Cardiovascular Disease
DX: I34.0 Nonrheumatic mitral (valve) insufficiency (principal); Z98.890 Other specified postprocedural states; E78.5 Hyperlipidemia, unspecified; I34.1 Nonrheumatic mitral (valve) prolapse; I44.1 Atrioventricular block, second degree
CPT/HCPCS: 93798

== ENCOUNTER 2021-07-16 13:00 | Outpatient (RCR) | payer OTHER, SELFPAY ==
[2021-06-14 07:06] VITALS: BMI 27.2
[2021-06-23 00:37] VITALS: BP 128/70; BP 140/74; BMI 26.4
--- NOTE | 2021-07-13 09:16 | CR.ITP_ITS ---
Diagnosis Exercise - 90-day Assessment - Visit Date of Eval: 07/13/21 Session #:: 29 - Patient missed sessions due to call-in to work midnight shift - Physician Prescribed Exercise Modalities: Treadmill, Airdyne, NuStep Frequency: 3x/week for 12 weeks [36 sessions] Intensity: 60-80% of age predicted maximum heart rate reserve Current METSs:: 8.0 on treadmill Target Heart Rate:: 116-152 Current RPE:: 12-13 Maximum Excercise HR:: 162 while on the [employer] Resting Blood Pressure: 110/72 Maximum Exercise Blood Pressure: 128/80 EKG Type: NSR to Sinus tach with occ. PACs and bursts of PAT. Current Physical Activity or Exercising minutes: 40-45 - Outcomes & Goals Goals:: Verbalizes understanding of THR, RPE & goal METS by session 6, Documents in home exercise log/reports 30 min aerobic 5 day/wk by DC, Demonstrates accurate pulse taking by DC - Intervention & Plan Exercise Program Goals: Instruct on personal THR & RPE, Instruct on MET level & personal MET goal, Show patient to take own pulse /validate performance until accurate, Instruct on home exercise - 30-day Reassessments 30 day Reassessments:: Met - Physical Activity Home Exercise Physical Activity - Home Exercise: Safe Exercise, Warm-up, Self-monitoring, Cool-Down, Home Exercise > 30 min Daily, Sitting Time <3 hours/daily - Outcomes & Goals Outcomes/Goals: Demonstrates correct Warm-up/exercise Cool-Down (S3) if = 2.5 METs, Verbalizes symptoms of exercise intolerance by Session 3 (S3), Demonstrate safe equipment use (S3) & follows exercise prescrition (6) - Intervention & Plan Plan/Intervention: Instruct warm-up & cool-down if exercising at > 2 METs, Instruct on symptoms of exercise intolerance & actions to take, Instruct & monitor on saf, Assess intial functional capacity & safety risk - 30-day Reassessments 30 day Reassessments:: Met Nutrition - Initial Assessment Nutrition - 30-Day Assessment Nutrition - 60-Day Assessment Nutrition - 90-Day Assessment - Program Goals Nutrition Program Goals: LDL <100 optimal. 100 - 129 Near optimal. 130 - 159 Borderline High. 160 - 189 High. Total Cholesterol <200 desirable. 200 - 239 Borderline High. >/= 240 High. HDL < 40 Low >/=60 High. Triglycerides <150 desirable. <199 optimal. VlDL 5 - 40. HgbA1C <7%. BMI <25 Patient has diagnosis of Hyperlipidemia (ICD E78)?: No - Visit Date of Assessment:: 07/13/21 Session #:: 29 - Cholesterol/Lipids Triglycerides (mg/dL): 127 Total Cholesterol (mg/dL): 209 LDL Cholesterol (mg/dL): 134 HDL Cholesterol (mg/dL): 50 Outcomes/Goals: Pt IDs own risk factors & lifestyle modifications by Session 10, Verbalizes symptoms of angina & response by session 3., Pt independently manages Intervention/Plan: Instruct on personal lipid levels & lipid goals/NCEP guidelines, Instruct on cholesterol Referral to dietitian:: No - Patient declined service 30-day Reassessments:: Progressing - Diabetes (Other Core Measures) Diabetes Type: Not Applicable - Weight Mgt (Other Care) Not Applicable: No Height: 5 ft 8 in Weight:: 180 lb BMI: 27.3 Diagnosis High BMI/Morbid Obesity BMI> 35% ICD-10 Z68: No Outcomes/Goals: Pt sets, maintains & shows weight loss goal & trend during rehab Intervention/Plan: Instruct on ideal BMI & set weight loss goal w/patient 30 day Reassessments:: Met - Healthy Eating Habits Will attend diet classes:: Yes Outcomes/Goals:: Consume diet rich in vegs,fruits,whole grain/high fiber,fish,lean meat, Limit sat/trans fats,cholesterol & added salts & sugars Intervention/Plan:: Assess current eating habits 30-day Reassessments:: Met - Education Gave educational materials for:: Healthy eating Nutrition - Final Assessment Medical - Initial Assessment Medical- 30-Day Assessment Medical- 60-Day Assessment Medical- 90-Day Assessment - Visit Date of Eval: 07/13/21 Session #:: 29 - Medication Compliance Preventative Medication(s):: Aspirin H/O mental health issues: depression, anxiety, or addiction?: Yes Doesn?t believe in the benefits of treatment?: No Believes medications are unnecessary or harmful?: No Has a concern about medication side effects?: No Expresses concern over the cost of medications?: No Outcomes/Goals: Verbalizes medications,desired effect & common side effects @ DC, Pt self-reports following medication regimen, Keeps card in wallet w/medications listed by DC Interventions/plans: Instruct on medication effects & side effects, Review medication list w/patient every two weeks, Instruct importance of taking meds as ordered & assist problem solving 30-day Reassessments:: Progressing - Tobacco Use Tobacco Use: Non-smoker - Hypertension Hypertension Diagnosis:: Hypertension ICD-10 I10 Resting Blood Pressure:: 110/72 [place] [employer] Hypertension Guidelines: [place] [employer] Hypertension Guidelines. Normal BP Less than 120/80. Elevated BP 120/80. Hypertension Stage 1: BP 130-139/80-89. Hypertesnion Stage 2: BP 140 or higher/90 or higher. Hypertension Crisis: BP higher than 180/120 Peak Exercise Blood Pressure:: 128/80 Outcomes/Goals: Able to verbalize/achieve optimal blood pressure <130/80, Incorporates diet changes & exercise for blood pressure control by DC Interventions/plan: Instruct on optimal blood pressure, hypertension & medications, Instruct on effects of sodium, alcohol, stress, exercise &hypertension 30 day Reassessments:: Met - Tobacco Cessation Referral Smoking Cessation Referral:: No Individual Education/Counseling:: No Education Schedule Given:: Yes Medical - Final Assessment Psychosocial - Initial Assess Psychosocial - 30-Day Assess Psychosocial - 60-Day Assess Psychosocial - 90-Day Assess - VIsit Date of Eval: 07/13/21 Session #:: 29 Not Applicable: No History of previous Mental disease:: Yes History of Emotional Disorders: Depression - Psychosocial Test Tool Used:: [employer] QOL Cardiac, PHQ-9 Questionnaire phq-9 Severity: Severity. 1-4 Minimal Depression. 5-9 Mild Depression. 10-14 Moderate Depression. 15-19 Moderately Sever Depression. 20-27 Severe Depression. Rule: - Referral to Behavioral Health PS - Interventions: No Referral to Behavioral Health if PHQ-9 score >9:, No Referral to [facility], No Referral to Physician if PHQ-9 if score is 5-9: - Outcomes/Goals: See list Psychosocial Outcomes/Goals:: ID's personal stressors & 2 strategies to manage stress by discharge - Intervention/Plan: See List Interventions/Plan:: Assess stressors,coping strategies & signs of derpression on admission, Instruct/assist pt to develop coping & personal stress Mgt strategies, Instruct patient to recognize signs & symptoms of depression, Instruct patient to recog - 30-day Reassessments: 30 day Reassessments:: Progressing Psychosocial - Final Assessmen Patient Health Questionnaire 90-Day Re-eval Assessment 1. Little interest or pleasure in doing things: Not at all 2. Feeling down, depressed, or hopeless: Not at all 3. Trouble falling or staying asleep, or sleeping too much: Several days 4. Feeling tired or having little energy: Several days 5. Poor appetite or overeating: Not at all 6. Feeling bad about yourself -- or that you are a failure or have let yourself or your family down: Not at all 7. Trouble concentrating on things, such as reading the newspaper or watching television: Not at all 8. Moving or speaking so slowly that other people could have noticed. Or the opposite - being so fidgety or restless that you have been moving around a lot more than usual: Not at all 9. Thoughts that you would be better off , or of hurting yourself in some way: Not at all How difficult have these problems made it for you to do your work, take care of things at home, or get along with other people?: Not difficult at all Total Score: 2 LANIE-Q SV Test - Statements CAD is a disease of the arteries in the heart: False Examples of risk factors for heart disease: True Angina is chest pain or discomfort: True The benefits of resistance training include: True Eating more meat and dairy products: False Anti-platelet medications such as aspirin are important: True The only effective way to manage stress: False An exercise warm-up slowly increases heart rate: True Prepared, processed foods usually have high sodium: True Depression is common after a heart attack: True The statin medications lower cholesterol: True To control blood pressure, lower the amount of sodium: True If someone gets chest discomfort during walking: False Transfats are partially hydrogenated vegetable oils: True Sleep apnea that is not treated increases the risk: False To control cholesterol, one should become a vegetarian: False Someone knows if he/she is exercising at the right level: True Diabetes cannot be prevented with exercise & health eating: False Stress is a large risk for heart attack: True A diet that can help lower blood pressure is rich in: True - Total Score Total Correct Responses: 20 Self-Efficacy 90-Day Re-eval Assessment We would like to know how confident you are in doing certain activities. Please select your confidence level for:: Select your confidence level for the following using the scale 1-10 where 1 is not at all confident and 10 is totally confident. Your score is the average of all 6 responses. Fatigue: How confident are you that you can keep the fatigue caused by your disease from interfering with the things you want to do? Select Number: 10 Physical Discomfort or Pain: How confident are you that you can keep the physical discomfort or pain of your disease from interfering with the things you want to do? Select Number: 10 Emotional Distress: How confident are you that you can keep the emotional distress caused by your disease from interfering with the things you want to do? Select Number: 10 Other Symptoms or Health Problems: How confident are you that you can keep other symptoms or health problems from interfering with the things you want to do? Select Number: 10 Different Tasks and Activities: How confident are you that you can do the different tasks and activities needed to manage your health condition so as to reduce your need to see a doctor? Select Number: 10 Medication: How confident are you that you can do things other than just taking medication to reduce how much your illness affects your everyday life? Select Number: 10 Total Score:: 10 Nutrition Survey
[2021-07-13 09:25] VITALS: BP 110/72; BP 128/80; BMI 27.3
== END 2021-07-22 23:59 ==
LOC: CR 13:00
PROVIDERS: PCP Family Medicine; Referring Provider Internal Medicine Cardiovascular Disease; Visit Provider Internal Medicine Cardiovascular Disease
DX: I34.0 Nonrheumatic mitral (valve) insufficiency (principal); I34.1 Nonrheumatic mitral (valve) prolapse; I44.1 Atrioventricular block, second degree; E78.5 Hyperlipidemia, unspecified
CPT/HCPCS: 93798

== ENCOUNTER 2022-01-24 10:06 | Outpatient (CLI) | payer OTHER, SELFPAY ==
[2021-07-13 09:25] VITALS: BMI 27.3
== END 2022-01-24 23:59 | disposition home or self-care (01) ==
LOC: PSN 10:07
PROVIDERS: PCP Family Medicine; Referring Provider Physician Assistant Medical; Visit Provider Physician Assistant Medical
DX: I44.1 Atrioventricular block, second degree (principal); Z98.890 Other specified postprocedural states
CPT/HCPCS: 93225; 93226

== ENCOUNTER 2022-01-31 11:13 | Outpatient (CLI) | payer OTHER, SELFPAY ==
[2021-07-13 09:25] VITALS: BMI 27.3
--- NOTE | 2022-01-31 11:17 | ECHOD_ITS ---
Reason For Study: Valve Replacement Eval Procedure This was a 2D Doppler, Color Flow transthoracic echocardiogram. Exam performed in department. Left Ventricle Normal LV size. Mid cavitary false tendon noted. Left ventricular systolic function is normal. The estimated ejection fraction is 55 %. No regional wall motion abnormalities noted. Right Ventricle Normal RV size. Normal systolic function. Atria Normal left atrium. Normal right atrium. Mitral Valve Normal mitral valve. Mild (1+) eccentric mitral valve insufficiency. Status post mitral valve repair with annuloplasty ring. Tricuspid Valve Normal tricuspid valve. Mild tricuspid valve insufficiency. Aortic Valve Normal aortic valve. Trisinus/trileaflet aortic valve. Pulmonic Valve Normal pulmonic valve. Great Vessels Normal aortic root. The pulmonary artery is normal size. Normal inferior vena cava. Pericardium/Pleural No pericardial effusion. MMode/2D Measurements & Calculations LVIDd: 4.9 cm IVSd: 0.78 cm Ao root diam: 3.0 cm LVIDs: 3.4 cm LVPWd: 0.87 cm RVDd: 3.4 cm FS: 30.4 % LAV(MOD-bp): 33.5 ml LVAd ap4: 29.7 cm2 SV(MOD-sp4): 54.4 ml LAV(MOD-bp) Indexed: 17.2 ml/m2 LVLd ap4: 8.5 cm LAV(MOD-sp2): 35.3 ml EDV(MOD-sp4): 86.7 ml LAV(MOD-sp4): 27.5 ml EDV(sp4-el): 88.5 ml LVAs ap4: 16.2 cm2 LVLs ap4: 6.9 cm ESV(MOD-sp4): 32.3 ml ESV(sp4-el): 32.1 ml EF(MOD-sp4): 62.8 % EF(sp4-el): 63.7 % SV(sp4-el): 56.4 ml LA A4 area: 11.7 cm2 LA dimension(2D): 3.4 cm RA A4 area: 9.4 cm2 Time Measurements MV dec time: 0.34 sec Doppler Measurements & Calculations MV E max jordan: 131.5 cm/sec Lat Peak E' Jordan: 12.5 cm/sec Med Peak E' Jordan: 10.3 cm/sec MV A max jordan: 87.3 cm/sec E/E' lat: 10.6 E/E' med: 12.8 MV E/A: 1.5 MV V2 max: 126.7 cm/sec MV P1/2t max jordan: 126.7 cm/sec Ao V2 max: 107.0 cm/sec MV max P.4 mmHg MV P1/2t: 98.9 msec Ao max P.6 mmHg MV V2 mean: 76.8 cm/sec Ao V2 mean: 74.5 cm/sec MV mean P.7 mmHg MV dec slope: 375.3 cm/sec2 Ao mean P.4 mmHg MV V2 VTI: 41.0 cm MVA(P1/2t): 2.2 cm2 Ao V2 VTI: 21.5 cm LV V1 max: 95.2 cm/sec PA V2 max: 89.8 cm/sec TR max jordan: 188.4 cm/sec LV V1 max P.6 mmHg TR max P.2 mmHg ECHO/Echo Complete Interpretation Summary Normal LV size. Left ventricular systolic function is normal. The estimated ejection fraction is 55 %. Mid cavitary false tendon noted. Mild tricuspid valve insufficiency. Status post mitral valve repair with annuloplasty ring. Mild (1+) eccentric mitral valve insufficiency. Ordering Physician: So Varma Referring Physician: Agus Skelton Performed By: Merary Jennings RDCS, RVT
== END 2022-01-31 23:59 | disposition home or self-care (01) ==
LOC: CVS 11:15
PROVIDERS: PCP Family Medicine; Referring Provider Physician Assistant Medical; Visit Provider Physician Assistant Medical
DX: I44.1 Atrioventricular block, second degree (principal); Z98.890 Other specified postprocedural states
CPT/HCPCS: 93306

== ENCOUNTER → 2023-08-23 | Outpatient (CLI) | payer OTHER, SELFPAY ==
[2021-07-13 09:25] VITALS: BMI 27.3
--- NOTE | 2023-08-23 12:33 | RAD_ITS ---
INDICATION: PNEUMONIA EXAMINATION/TECHNIQUE: X-RAY - XR Chest 2 Views COMPARISON: 03/24/2021. FINDINGS: LINES/DEVICES: None. LUNGS: No consolidation, edema or effusion. No pneumothorax. MEDIASTINUM AND CARDIOVASCULAR STRUCTURES: Cardiac silhouette not enlarged. Central airways and mediastinal contour are unremarkable. BONES AND SOFT TISSUES: Unremarkable. RAD/Chest PA and Lateral IMPRESSION: No radiographic evidence of acute cardiopulmonary disease. Electronically Signed: Karen Lobato MD at 23:55 EDT Reading Location ID and State: [id number] / Tel , Service support ,
== END | disposition home or self-care (01) ==
LOC: MTRAD 12:32
PROVIDERS: PCP Family Medicine; Referring Provider Family Medicine; Visit Provider Family Medicine
DX: J18.9 Pneumonia, unspecified organism (principal)
CPT/HCPCS: 71046

== ENCOUNTER → 2024-02-16 | Outpatient (CLI) | payer OTHER, SELFPAY ==
[2021-07-13 09:25] VITALS: BMI 27.3
== END | disposition home or self-care (01) ==
PROVIDERS: PCP Family Medicine; Referring Provider Family Medicine; Visit Provider Family Medicine
DX: L02.91 Cutaneous abscess, unspecified (principal)
CPT/HCPCS: 87070; 87077; 87186; 87205

== ENCOUNTER → 2024-11-07 | Outpatient (CLI) | payer OTHER, SELFPAY ==
[2021-07-13 09:25] VITALS: BMI 27.3
--- NOTE | 2024-11-07 13:55 | ECHOD_ITS ---
Reason For Study: VALVE REPLACEMENT Procedure This was a 2D Doppler, Color Flow transthoracic echocardiogram. Exam performed in department. Left Ventricle Normal LV size. The left ventricular ejection fraction is 65 %. No regional wall motion abnormalities noted. Right Ventricle Normal RV size. Normal systolic function. Atria Normal left atrium. Normal right atrium. Mitral Valve Status post mitral valve repair with annuloplasty ring. Tricuspid Valve Normal tricuspid valve. Mild tricuspid valve insufficiency. Aortic Valve Trisinus/trileaflet aortic valve. Pulmonic Valve Normal pulmonic valve. Great Vessels Normal aortic root. The pulmonary artery is normal size. Inferior vena cava collapse with respiration. Pericardium/Pleural No pericardial effusion. MMode/2D Measurements & Calculations LVIDd: 4.7 cm IVSd: 0.90 cm LVOT diam: 2.1 cm LVIDs: 3.1 cm LVPWd: 0.89 cm LVOT area: 3.5 cm2 RVDd: 3.9 cm FS: 34.7 % asc Aorta Diam: 3.0 cm LAV(MOD-bp): 37.9 ml LVAd ap4: 23.4 cm2 LAV(MOD-bp) Indexed: 19.2 ml/m2 LVLd ap4: 8.1 cm LAV(MOD-sp2): 48.3 ml EDV(MOD-sp4): 56.2 ml LAV(MOD-sp4): 29.3 ml EDV(sp4-el): 57.4 ml LVAs ap4: 12.2 cm2 LVLs ap4: 6.6 cm ESV(MOD-sp4): 20.7 ml ESV(sp4-el): 19.1 ml EF(MOD-sp4): 63.2 % EF(sp4-el): 66.8 % LVAd ap2: 25.1 cm2 SV(MOD-sp4): 35.5 ml SV(MOD-sp2): 42.0 ml LVLd ap2: 8.2 cm SI(MOD-sp4): 18.0 ml/m2 SI(MOD-sp2): 21.2 ml/m2 EDV(MOD-sp2): 64.6 ml EDV(sp2-el): 65.3 ml LVAs ap2: 13.3 cm2 LVLs ap2: 6.9 cm ESV(MOD-sp2): 22.6 ml ESV(sp2-el): 22.0 ml EF(MOD-sp2): 65.0 % SV(sp4-el): 38.3 ml Ao sinus diam: 3.[address] Junction: 3.2 cm LA dimension(2D): 3.2 cm LA A4 area: 13.5 cm2 RA A4 area: 15.2 cm2 TAPSE: 1.8 cm Time Measurements MV dec time: 0.22 sec Doppler Measurements & Calculations MV E max jordan: 128.1 cm/sec Lat Peak E' Jordan: 10.8 cm/sec Med Peak E' Jordan: 8.5 cm/sec MV A max jordan: 116.7 cm/sec E/E' lat: 11.9 E/E' med: 15.1 MV E/A: 1.1 MV V2 max: 156.2 cm/sec MV dec slope: 574.1 cm/sec2 Ao V2 max: 105.7 cm/sec MV max P.8 mmHg Ao max P.5 mmHg MV V2 mean: 96.6 cm/sec Ao V2 mean: 78.9 cm/sec MV mean P.1 mmHg Ao mean P.7 mmHg MV V2 VTI: 38.6 cm Ao V2 VTI: 22.1 cm MVA(VTI): 2.0 cm2 AV (velocity ratio): 0.99 SUHA(I,D): 3.5 cm2 SUHA(V,D): 3.3 cm2 LV V1 max: 100.1 cm/sec SV(LVOT): 77.4 ml PA V2 max: 86.5 cm/sec LV V1 max P.0 mmHg LV V1 mean P.3 mmHg LV V1 mean: 71.8 cm/sec LV V1 VTI: 21.9 cm TR max jordan: 215.6 cm/sec TR max P.6 mmHg ECHO/Echo Complete Interpretation Summary Normal LV size. The left ventricular ejection fraction is 65 %. Status post mitral valve repair with annuloplasty ring. Ordering Physician: So Varma Referring Physician: DENAE CARRILLO Performed By: Violeta Cline RDCS
== END | disposition home or self-care (01) ==
LOC: CVS 13:55
PROVIDERS: PCP Family Medicine; Referring Provider Physician Assistant Medical; Visit Provider Physician Assistant Medical
DX: Z95.2 Presence of prosthetic heart valve (principal); Z98.890 Other specified postprocedural states
CPT/HCPCS: 93306